=== PATIENT | male | born 1945 | race Caucasian/White ===

== ENCOUNTER 2016-10-31 23:31 | Inpatient (IN) | payer MEDICARE, BC ==
[~2016-10-31] VITALS: Ht 177.8 cm; Wt 81.7 kg
--- NOTE | ~2016-10-31 | HEMODYNAMI ---
PATIENT:SANDIE CHIRINOS MEDICAL RECORD: [id number] : 47 LOCATION:[facility] D.2114 ADMISSION DATE: 11/01/16 Generatedon:11/02/201610:12 Patient name: SANDIE CHIRINOS Patient #: [id number] : 1945 Date of study: 11/02/2016 Page: Of Hemodynamic Procedure Report Patient Data Patient Demographics Procedure consent was obtained First Name: SANDIE Gender: Male Last Name: TARAN : 1945 Patient #: [id number] Age: 71 year(s) Race: SSN: [id number] Additional ID: [id number] Contact details Address: [address] [place] [address] rd State: [place] City: [place] Zip code: [address] Past Medical History Allergies: No known allergies Admission Admission Data Admission Date: 11/01/2016 Admission Time: 1:04 Arrival Date: 11/01/2016 Arrival Time: 1:04 Admit Source: Other Insurance Payor: Medicare Room #: D.2114 Height (in.): 70 BSA: 2 (m2) Height (cm.): 177.8 BMI: 25.94 (kg/m2) Weight (lbs.): 180.78 Weight (kg.): 82 Lab Results Lab Result Date: 11/02/2016 Lab Result Time: 0:00 Biochemistry Name Units Result Min Max BUN mg/dl 22 --(----)-* 7 18 Creatinine mg/dl 1.6 --(----)-* 0.6 1.3 CBC Name Units Result Min Max Hemoglobin g/dl 12.8 -*(----)-- 13.5 17.5 Procedure Procedure Types Cath Procedure PCI Procedure Coronary Stent Initial Coronary Stent Additional Miscellaneous Procedures Moderate Sedation up to 45 minutes Procedure Description Procedure Date Procedure Date: 11/02/2016 Procedure Start Time: 9:36 Procedure End Time: 10:07 Procedure Staff Name Function Solitario Ortez MD Performing Physician Florina Bernal RT Scrub Mindy Avila RN Nurse Tata Tong RT Monitor Indication Angina Procedure Data Cath Procedure Fluoroscopy Diagnostic fluoroscopy Total fluoroscopy Time: time: 16.8 min 16.8 min Diagnostic fluoroscopy Total fluoroscopy dose: dose: 2138 mGy 2138 mGy Contrast Material Contrast Material Type Amount (ml) Isovue 370 151 Entry Location Entry Primary Successful Side Size Upsize Upsize Entry Closure Succes sful Closure Location (Fr) 1 (Fr) 2 (Fr) Remarks Device Remarks Femoral Left 6 Fr Exoseal artery Short Estimated blood loss: 5 ml Procedure Complications No complications Procedure Medications Medication Administration Route Dosage Oxygen NC 2 l/min Lidocaine 2% added to field 20 Heparin Flush Bag added to field 2 bags (1000units/500ml NS) 0.9% NaCl I.V. 100 ml/hr Heparin Bolus I.V. 4000 units Versed I.V. 1 mg Fentanyl I.V. 50 mcg Versed I.V. 0.5 mg Fentanyl I.V. 50 mcg Versed I.V. 0.5 mg Heparin Bolus I.V. 3000 units Hemodynamics Rest BSA: 2 (m2) HGB: 12.8 (g/dl) O2 Consumption: Estimated: 222.9 (ml/min) O2 Consum ption indexed: Estimated:111.45 (ml/min/m) Heart Rate: 59 (bpm) Snapshots Pre Cath Intra NCS Post Cath Vital Signs Time Heart Resp SPO2 NIBP Rhythm Pain Sedation Rate (ipm) (%) (mmHg) Status Level (bpm) 9:16:35 58 17 98 122/72(94) NSR 0 (11) 10(A) , No pain 9:20:45 59 16 100 109/67(81) NSR 0 (11) 10(A) , No pain 9:24:53 61 14 97 103/58(73) NSR 0 (11) 10(A) , No pain 9:28:58 60 15 97 93/56(72) NSR 0 (11) 10(A) , No pain 9:33:02 64 15 95 91/54(68) NSR 0 (11) 10(A) , No pain 9:37:06 57 13 96 102/56(79) NSR 0 (11) 9(A) , No pain 9:41:16 61 15 97 89/49(66) NSR 0 (11) 9(A) , No pain 9:45:19 65 14 96 102/54(73) NSR 0 (11) 9(A) , No pain 9:49:27 59 14 97 100/56(71) NSR 0 (11) 9(A) , No pain 9:53:31 60 13 96 100/61(77) NSR 0 (11) 9(A) , No pain 9:57:33 61 16 96 105/68(86) NSR 0 (11) 9(A) , No pain 10:01:37 62 15 97 107/68(85) NSR 0 (11) 9(A) , No pain 10:05:42 62 14 97 109/64(87) NSR 0 (11) 10(A) , No pain Medications Time Medication Route Dose Verified Delivered Reason Notes Ef fectiveness by by 9:13:15 Oxygen NC 2 Solitario Buffie used for l/min Neelima Avila RN procedure 9:13:24 Lidocaine 2% added 20ml Solitario Solitario for local to vial Neelima Ortez MD anesthetic field 9:13:39 Heparin Flush added 2 Solitario Solitario used for Bag to bags Neelima Ortez MD procedure (1000units/500ml field NS) 9:13:48 0.9% NaCl I.V. 100 Solitario Buffie Per ml/hr Neelima Avila RN physician 9:29:21 Versed I.V. 1 mg Buffie Buffie for Avila RN Avila RN sedation 9:29:29 Fentanyl I.V. 50 Buffie Buffie for mcg Avila RN Avila RN sedation 9:37:02 Heparin Bolus I.V. 4000 Solitario Buffie Per verified units Neelima Avila RN physician with dr ortez 9:44:17 Versed I.V. 0.5 Buffie Buffie for mg Avila RN Avila RN sedation 9:52:14 Fentanyl I.V. 50 Buffie Buffie for mcg Avila RN Avila RN sedation 9:52:22 Versed I.V. 0.5 Buffie Buffie for mg Avila RN Avila RN sedation 10:01:29 Heparin Bolus I.V. 3000 Solitario Buffie Per verified units Neelima Avila RN physician with dr ortez Procedure Log Time Note 8:58:00 Diagnostic Cath Status : Elective 8:58:21 Indication : Angina 8:58:26 Florina Bernal RT(R) sent for patient. Start room use. 8:58:34 Time tracking: Regular hours 8:58:39 Plan of Care:Hemodynamics will remain stable., Cardiac rhythm will remain stable., Comfort level will be maintained., Respiratory function will remain adequate., Patient/ family verbilizes understanding of procedure., Procedure tolerated without complication., Recovers from procedure without complications.. 9:04:05 Informed consent obtained and on chart 9:09:07 Patient received from Med II to CCL 2 Alert and oriented. Tansferred to table in Supine position. 9:09:08 Warm blankets applied, and gabino hugger turned on for patient comfort. 9:09:08 Correct patient and procedure confirmed by team. 9:09:09 ECG and BP/O2 sat monitors applied to patient. 9:13:15 Oxygen 2 l/min NC was administered by Mindy Avila RN; used for procedure; 9:13:24 Lidocaine 2% 20ml vial added to field was administered by Solitario Ortez MD; for local anesthetic; 9:13:39 Heparin Flush Bag (1000units/500ml NS) 2 bags added to field was administered by Solitario Ortez MD; used for procedure; 9:13:48 0.9% NaCl 100 ml/hr I.V. was administered by Mindy Avila RN; Per physician; 9:15:24 Vital chart was started 9:17:30 Baseline sample Acquired. 9:17:34 Rhythm: sinus rhythm 9:17:36 Full Disclosure recording started 9:17:51 H&P Date Dictated: 11/02/2016 Within 30 days and on chart.. 9:17:52 Pre-procedure instructions explained to patient. 9:17:52 Pre-op teaching completed and patient verbalized understanding. 9:17:53 Family in waiting room. 9:17:54 Patient NPO since Midnight. 9:18:00 Is the patient allergic to Iodine/contrast media? No. 9:18:01 Was the patient premedicated? No 9:18:03 Is patient on blood thinner?Yes 9:18:06 ACC The patient was administered the following blood thiners within the last 24 hours: ACCPlavix 9:20:19 Patient diabetic? No. 9:20:22 Previous problem with sedation/anesthesia? No ? 9:20:27 Snore? Yes 9:20:30 Sleep apnea? No 9:20:31 Deviated septum? No 9:20:32 Opens mouth fully? Yes 9:20:32 Sticks out tongue? Yes 9:20:37 Airway obstruction? No ? 9:20:42 Dentures? Yes in tight 9:20:47 Pre procedure: right dorsailis pedis pulse 1+ Palpable, but thready & weak; easily obliterated 9:20:53 IV patent on arrival in left forearm with 0.9% NaCl at [facility]. 9:21:13 Lab Result : BUN 22 mg/dl 9:21:13 Lab Result : Creatinine 1.6 mg/dl 9:21:13 Lab Result : Hemoglobin 12.8 g/dl 9:21:17 Lab results completed and on chart. 9:21:31 Left groin area was prepped with chlora-prep and draped in sterile fashion 9:21:35 Alarms reviewed by R. N. 9:21:35 Sharps counted by scrub and verified by R.N. 9:22:15 Use device set Femoral PCI 9:22:16 Acist Syringe opened to sterile field. 9:22:17 Acist Hand Control opened to sterile field. 9:22:17 Bag Decanter opened to sterile field. 9:22:17 Medline Cath Pack opened to sterile field. 9:22:18 Terumo 6Fr [place] Sheath opened to sterile field. 9:22:18 St Andres 260cm J .035 wire opened to sterile field. 9:22:19 Merit BasixCompak Inflation Kit opened to sterile field. 9:22:19 Acist Manifold opened to sterile field. 9:22:20 Tegaderm 4 x 4 opened to sterile field. 9:27:46 Patient Weight : 82 kg 9:28:15 Patient Height : 177.8 cm 9:28:51 Physician arrived 9:28:51 --------ALL STOP TIME OUT------ 9:28:51 Final Timeout: patient, procedure, and site verified with staff and physician. All members of the team are in agreement. 9:28:53 Left groin site verified by team. 9:28:56 Physical assessment completed. ASA score P 2 - A patient with mild systemic disease as per Solitario Ortez MD. 9:28:59 Sedation plan: IV Moderate Sedation Versed, Fentanyl 9:29:21 Versed 1 mg I.V. was administered by Mindy Avila RN; for sedation; 9:29:29 Fentanyl 50 mcg I.V. was administered by Mindy Avila RN; for sedation; 9:32:56 Zero performed for pressure channel P1 9:35:55 Procedure started. 9:36:03 Local anesthetic to left femerol artery with Lidocaine 2% by Solitario Ortez MD.INITIAL ACCESS ONLY 9:36:11 A 6 Fr Short sheath was inserted into the Left Femoral artery 9:36:24 Cordis 6FR XBLAD 3.5 guide catheter opened to sterile field. 9:36:25 Li Whisper J 300cm 0.014 guide wire opened to sterile field. 9:36:25 Li Whisper J 300cm 0.014 guide wire opened to sterile field. 9:36:33 6 Fr xblad 3.5 guide catheter was inserted over the wire 9:36:38 ist whisper advanced down lad 9:37:02 Heparin Bolus 4000 units I.V. was administered by Mindy Avila RN; Per physician; verified with dr ortez 9:39:13 additional whisper wire advanced down lcx 9:39:45 Inflation number: 1 A Leslie Sci Morrow 2.5 X 15 balloon was prepped and advanced across the 1st Diag, then inflated to 9 DEBBIE for 0:10 (min:sec). 9:40:01 Inflation number: 2 The Leslie Sci Morrow 2.5 X 15 balloon was reinflated across the 1st Diag, to 9 DEBBIE for 0:10 (min:sec). 9:40:41 Inflation number: 3 The Leslie Sci Morrow 2.5 X 15 balloon was reinflated across the 1st Diag, to 9 DEBBIE for 0:10 (min:sec). 9:41:44 Balloon removed over the wire. 9:44:17 Versed 0.5 mg I.V. was administered by Mindy Avila RN; for sedation; 9:45:44 Inflation number: 1 A Euphora 2.5 x 20 Balloon was prepped and advanced across the Prox LAD, then inflated to 13 DEBBIE for 0:10 (min:sec). 9:46:01 Inflation number: 2 The Euphora 2.5 x 20 Balloon was reinflated across the Prox LAD, to 17 DEBBIE for 0:10 (min:sec). 9:46:57 Balloon removed over the wire. 9:49:07 Inflation Number: 3 A Biofreedom 2.5 x 28 stent (No Cost Implant) was prepped and advanced across the Prox LAD. The stent was deployed at 13 DEBBIE for 0:10 (min:sec). 9:50:12 Stent catheter was removed intact over wire. 9:52:14 Fentanyl 50 mcg I.V. was administered by Mindy Avila RN; for sedation; 9:52:17 Inflation number: 4 A Leslie Sci Morrow 3.0 X 15 balloon was prepped and advanced across the Prox LAD, then inflated to 13 DEBBIE for 0:10 (min:sec). 9:52:22 Versed 0.5 mg I.V. was administered by Mindy Avila RN; for sedation; 9:52:46 Balloon removed over the wire. 9:54:28 Inflation Number: 5 A Biofreedom 3.5 x 14 stent (No Cost Implant) was prepped and advanced across the Prox LAD. The stent was deployed at 17 DEBBIE for 0:10 (min:sec). 9:54:53 Stent catheter was removed intact over wire. 9:55:23 Leslie Sci Choice PT Extra Support J 300cm .014 gu opened to sterile field. 9:56:21 choice pt wire advanced down diag 9:58:20 Inflation number: 4 A Euphora 1.5 x 15 Balloon was prepped and advanced across the 1st Diag, then inflated to 21 DEBBIE for 0:10 (min:sec). 10:00:06 Balloon removed over the wire. 10:00:55 Inflation number: 5 The Leslie Sci Morrow 2.5 X 15 balloon was reinflated across the 1st Diag, to 19 DEBBIE for 0:10 (min:sec). 10:01:29 Heparin Bolus 3000 units I.V. was administered by Mindy Avila RN; Per physician; verified with dr ortez 10:01:32 Balloon removed over the wire. 10:03:37 Inflation Number: 6 A Biofreedom 2.5 x 8 stent (No Cost Implant) was prepped and advanced across the 1st Diag. The stent was deployed at 11 DEBBIE for 0:10 (min:sec). 10:04:41 Stent catheter was removed intact over wire. 10:04:41 Wire removed. 10:04:42 Guide catheter removed. 10:04:54 Cordis 6Fr Exoseal opened to sterile field. 10:06:02 Sheath removed intact; hemostasis achieved with Exoseal to the Left Femoral artery. 10:06:04 Procedure ended.(Physican Out) 10:06:19 Fluoroscopy time 16.80 minutes. 10:06:30 Flurop Dose total: 2138 10:06:30 Fluoroscopy dose: 2138 mGy 10:06:35 Contrast amount:Isovue 370 151ml. 10:06:37 Sharps counted by scrub and verified by R.N. 10:06:38 Insertion/operative site no bleeding no hematoma. 10:06:47 Post-op/insertion site Left Femoral artery dressed using a 4 x 4 and Tegaderm. 10:06:52 Post left femerol artery:stable 10:06:54 Post Procedure Pulses reassessed and unchanged 10:06:57 Post procedure rhythm: unchanged. 10:07:02 Estimated blood loss: 5 ml 10:07:05 Post procedure instruction explained to patient.Patient verbalizes understanding. 10:07:06 Patient needs reinforcement of post procedure teaching. 10:07:23 Procedure type changed to Cath procedure, PCI procedure, Coronary Stent Initial, Coronary Stent Additional, Miscellaneous Procedures, Moderate Sedation up to 45 minutes 10:07:24 Procedure and supply charges have been captured, reviewed, submitted and are correct. 10:07:29 Procedure Complication : No complications 10:07:31 Vital chart was stopped 10:07:32 See physician's report for complete and final results. 10:07:[address] [facility]. 10:07:[address] [facility] with Stretcher. 10:07:41 Procedure ended. 10:07:41 Full Disclosure recording stopped 10:07:53 ACC-PCI Only Patient was given prescriptions, or instructed by Solitario Ortez MD to start/continue the following medications upon discharge: Plavix 10:07:55 End room use (Document Last) Intervention Summary Intervention Notes Time ActionType Lesion and Equipment Action# Pressure Duration Attributes Used 9:39:45 Inflate 1st Diag Leslie Sci 1 9 00:10 balloon Morrow 2.5 X 15 balloon 9:40:01 Reinflate 1st Diag Leslie Sci 2 9 00:10 balloon Morrow 2.5 X 15 balloon 9:40:41 Reinflate 1st Diag Leslie Sci 3 9 00:10 balloon Morrow 2.5 X 15 balloon 9:45:44 Inflate Prox LAD Euphora 1 13 00:10 balloon 2.5 x 20 Balloon 9:46:01 Reinflate Prox LAD Euphora 2 17 00:10 balloon 2.5 x 20 Balloon 9:49:07 Place stent Prox LAD Biofreedom 3 13 00:10 2.5 x 28 stent (No Cost Implant) 9:52:17 Inflate Prox LAD Leslie Sci 4 13 00:10 balloon Morrow 3.0 X 15 balloon 9:54:28 [address] stent Prox LAD Biofreedom 5 17 00:10 3.5 x 14 stent (No Cost Implant) 9:58:20 Inflate 1st Diag Euphora 4 21 00:10 balloon 1.5 x 15 Balloon 10:00:55 Reinflate 1st Diag Leslie Sci 5 19 00:10 balloon Morrow 2.5 X 15 balloon 10:03:37 [address] stent 1st Diag Biofreedom 6 11 00:10 2.5 x 8 stent (No Cost Implant) Device Usage Item Name Manufacture Quantity Catalog Number Hospital Part Current Mini mal Lot# / Charge Number Stock Stock Serial# Code Acist Acist 1 49780 329162 180460 251145 20 Syringe Medical Systems Inc Acist Hand Acist 1 07452 245594 758781 600837 5 Carousell Medical [employer] Inc Bag Microtek 1 2002S 250278 30475 792844 5 Qualgenix Inc. Medline Cardinal 1 [id number] 856563 74425 284448 5 Elemental Cyber Security Terumo 6Fr Terumo 1 [id number] 666156 658738 231265 [address] Andres 1 523691 950937 381943 295111 30 260cm J .035 wire Merit Merit 1 [id number] 425497 771949 919152 15 [email or web address] Medical Inflation Kit Acist Acist 1 74315 807309 126543 418122 5 Manifold Medical Systems Inc Tegaderm 4 3M 1 1626W 920489 934861 831568 5 x 4 Cordis 6FR Cardinal 1 [id number] 895664 179239 807463 10 XBLAD 3.5 Health guide catheter Li Li 2 [id number] 270167 172511 359758 5 Whisper J Vascular 300cm 0.014 guide wire Leslie Sci Leslie 1 [id number] 921744 654503 995067 1 [id number] Morrow Scientific 2.5 X 15 balloon Euphora 2.5 Medtronic 1 [id number] 077051 614468 607766 5 [id number] x 20 Balloon Biofreedom Biosensors 1 [facility]2-2528 401832 621655 5 [id number] 2.5 x 28 [place] SA stent (No Cost Implant) Leslie Sci Leslie 1 [id number] 430377 863285 170741 1 [id number] Morrow Scientific 3.0 X 15 balloon Biofreedom Biosensors 1 [facility]2-1774 354273 854681 5 [id number] 3.5 x 14 [place] SA stent (No Cost Implant) Leslie Sci Leslie 1 [id number] 967492 536667 389492 5 Choice PT Scientific Extra Support J 300cm .014 gu Euphora 1.5 Medtronic 1 [id number] 103991 293227 266108 5 [id number] x 15 Balloon Biofreedom Biosensors 1 [facility]2-8379 679791 780888 5 [id number] 2.5 x 8 [place] SA stent (No Cost Implant) Cordis 6Fr Cardinal 1 EX600 512090 523390 614628 10 [facility] Signature Audit Sweet Stage Time Signature Unsigned Intra-Procedure 11/02/2016 Florina Bernal 10:12:11 AM RT(R) Signatures Monitor : Tata Tong Signature : RT Date : Time : [place] [id number] [facility] [place] [address]
--- NOTE | ~2016-10-31 | HEMODYNAMI ---
PATIENT:SANDIE CHIRINOS MEDICAL RECORD: [id number] : 47 LOCATION:[facility] D.2114 ADMISSION DATE: 11/01/16 Generatedon:11/03/201612:33 Patient name: SANDIE CHIRINOS Patient #: [id number] : 1945 Date of study: 11/01/2016 Page: Of Hemodynamic Procedure Report Patient Data Patient Demographics Procedure consent was obtained First Name: SANDIE Gender: Male Last Name: TARAN : 1945 Patient #: [id number] Age: 71 year(s) Race: SSN: [id number] Additional ID: [id number] Contact details Address: [address] [place] [address] rd State: [place] City: [place] Zip code: [address] Past Medical History Allergies: No known allergies Admission Admission Data Admission Date: 11/01/2016 Admission Time: 10:40 Arrival Date: 11/01/2016 Arrival Time: 1:04 Admit Source: Other Insurance Payor: Medicare Room #: D.2114 Height (in.): 70 BSA: 2 (m2) Height (cm.): 177.8 BMI: 25.94 (kg/m2) Weight (lbs.): 180.78 Weight (kg.): 82 Lab Results Lab Result Date: 11/02/2016 Lab Result Time: 0:00 Biochemistry Name Units Result Min Max BUN mg/dl 22 --(----)-* 7 18 Creatinine mg/dl 1.6 --(----)-* 0.6 1.3 CBC Name Units Result Min Max Hemoglobin g/dl 12.8 -*(----)-- 13.5 17.5 Procedure Procedure Types Cath Procedure Diagnostic Procedure [facility] w/Coronaries PCI Procedure Coronary Stent Initial Coronary Stent Additional Miscellaneous Procedures Moderate Sedation up to 45 minutes Procedure Description Procedure Date Procedure Date: 11/01/2016 Procedure Start Time: 10:05 Procedure End Time: 10:37 Procedure Staff Name Function Florina Bernal RT Monitor Mindy Avila RN Nurse Solitario Ortez MD Performing Physician Tata Tong RT Scrub Indication Angina Procedure Data Cath Procedure Fluoroscopy Diagnostic fluoroscopy Total fluoroscopy Time: time: 11.3 min 11.3 min Diagnostic fluoroscopy Total fluoroscopy dose: dose: 1282 mGy 1282 mGy Contrast Material Contrast Material Type Amount (ml) Isovue 370 116 Entry Location Entry Primary Successful Side Size Upsize Upsize Entry Closure Succes sful Closure Location (Fr) 1 (Fr) 2 (Fr) Remarks Device Remarks Femoral Right 6 Fr Exoseal artery Short Estimated blood loss: 5 ml Diagnostic catheters Device Type Used For End Catheter Placement Cordis 5Fr Pigtail LV Angiography Catheter (MP) Cordis 5Fr JL 4.0 Left Coronary Catheter (MP) Angiography Cordis 5Fr 3DRC Catheter Right Coronary (MP) Angiography Procedure Complications No complications Procedure Medications Medication Administration Route Dosage Oxygen NC 2 l/min Lidocaine 2% added to field 20 Heparin Flush Bag added to field 2 bags (1000units/500ml NS) 0.9% NaCl I.V. 100 ml/hr Versed I.V. 1 mg Fentanyl I.V. 50 mcg Versed I.V. 1 mg Fentanyl I.V. 50 mcg Heparin Bolus I.V. 5000 units Integrilin (Bolus I.V. 7.3 ml 2mg/ml) Integrilin (Bolus 7.3 ml 2mg/ml) Nitroglycerin IC/IA I.C. 150 mcg Plavix P.O. 75 mg Hemodynamics Rest BSA: 2 (m2) HGB: 12.8 (g/dl) O2 Consumption: Estimated: 217.26 (ml/min) O2 Consu mption indexed: Estimated:108.63 (ml/min/m) Heart Rate: 51 (bpm) Pressure Samples Time Site Value (mmHg) Purpose Heart Use Rate(bpm) 10:07 LV 53/50,53 Snapshot 41 Snapshots Pre Cath Intra NCS Post Cath Vital Signs Time Heart Resp SPO2 NIBP Rhythm Pain Status Sedation Rate (ipm) (%) (mmHg) Level (bpm) 9:54:47 49 22 97 104/65(79) NSR 4 (11) , 10(A) Distressing 9:58:53 52 18 97 103/63(78) NSR 4 (11) , 10(A) Distressing 10:02:59 57 17 94 101/60(71) NSR 0 (11) , No 10(A) pain 10:07:04 60 16 97 99/57(72) NSR 0 (11) , No 9(A) pain 10:11:08 62 19 98 105/62(76) NSR 0 (11) , No 9(A) pain 10:15:16 55 16 97 100/54(77) NSR 0 (11) , No 9(A) pain 10:19:24 58 16 98 96/54(70) NSR 0 (11) , No 9(A) pain 10:23:34 50 19 96 87/42(61) NSR 0 (11) , No 9(A) pain 10:27:37 48 16 95 96/51(72) NSR 0 (11) , No 9(A) pain 10:31:41 47 17 95 95/58(74) NSR 0 (11) , No 9(A) pain 10:35:45 48 15 97 104/59(80) NSR 0 (11) , No 10(A) pain Medications Time Medication Route Dose Verified Delivered Reason Notes Effectiveness by by 9:59:17 Oxygen NC 2 Solitario Buffie used for l/min Neelima Avila RN procedure 9:59:24 Lidocaine 2% added 20ml Solitario Solitario used for to vial Neelima Ortez MD procedure field 9:59:30 Heparin Flush added 2 Solitario Solitario used for Bag to bags Neelima Ortez MD procedure (1000units/500ml field NS) 9:59:43 0.9% NaCl I.V. 100 Solitario Buffie Per physician ml/hr Neelima Avila RN 10:00:54 Versed I.V. 1 mg Solitario Buffie for sedation Neelima Avila RN 10:01:00 Fentanyl I.V. 50 Solitario Buffie for sedation mcg Neelima Avila RN 10:08:27 Versed I.V. 1 mg Solitario Buffie for sedation Neelima Avila RN 10:08:30 Fentanyl I.V. 50 Solitario Buffie for sedation mcg Neelima Avila RN 10:11:39 Heparin Bolus I.V. 5000 Solitario Buffie for verifi ed units Neelima Avila RN anticoagulation with dr ortez 10:13:11 Integrilin I.V. 7.3 Solitario Guillen for wasted (Bolus 2mg/ml) ml Neelima Avila RN antiplatelet 2.7 ml therapy of vial 10:18:36 Integrilin I.C 7.3 Solitario Guillen for wasted (Bolus 2mg/ml) ml Neelima Avila RN antiplatelet 2.7 ml therapy of vial 10:21:09 Nitroglycerin I.C. 150 Solitario Jerez for on fie ld IC/IA mcg Neelima Ortez MD vasodilation for dr ortez 10:37:45 Plavix P.O. 75 mg Solitariojose r Guillen for Neelima Avila RN antiplatelet therapy Procedure Log Time Note 9:40:36 Florina Marquezen RT(R) sent for patient. Start room use. 9:46:34 Informed consent obtained and on chart 9:47:27 Admit Source: Other 9:47:35 Arrival Date: 11/01/2016 1:04:00 AM 9:47:45 Insurance Payor : Medicare 9:48:09 Lab Result : Hemoglobin 12.8 g/dl 9:48:09 Lab Result : Creatinine 1.6 mg/dl 9:48:09 Lab Result : BUN 22 mg/dl 9:48:15 Diagnostic Cath Status : Elective 9:48:34 Indication : Angina 9:48:43 Time tracking: Regular hours 9:48:48 Plan of Care:Hemodynamics will remain stable., Cardiac rhythm will remain stable., Comfort level will be maintained., Respiratory function will remain adequate., Patient/ family verbilizes understanding of procedure., Procedure tolerated without complication., Recovers from procedure without complications.. 9:48:53 Patient received from Med II to CCL 1 Alert and oriented. Tansferred to table in Supine position. 9:48:54 Correct patient and procedure confirmed by team. 9:48:54 Warm blankets applied, and gabino hugger turned on for patient comfort. 9:48:55 ECG and BP/O2 sat monitors applied to patient. 9:53:43 Vital chart was started 9:53:45 Baseline sample Acquired. 9:53:56 Rhythm: sinus rhythm 9:53:58 Full Disclosure recording started 9:54:14 H&P Date Dictated: 10/31/2016 Within 30 days and on chart.. 9:54:18 Pre-procedure instructions explained to patient. 9:54:19 Pre-procedure instructions explained to patient. 9:54:22 Family in waiting room. 9:54:33 Patient NPO since Midnight. 9:54:44 Patient allergic to No known allergies 9:54:48 Is the patient allergic to Iodine/contrast media? No. 9:54:57 Is patient on blood thinner?Yes 9:55:04 ACC The patient was administered the following blood thiners within the last 24 hours: ACCPlavix 9:55:07 Patient diabetic? No. 9:55:12 Snore? Yes 9:55:14 Sleep apnea? No 9:55:24 Dentures? Yes partials 9:55:40 Patient pain scale 4/10 pressure. 9:56:09 IV patent on arrival in left forearm with 0.9% NaCl at [facility]. 9:56:22 Lab results completed and on chart. 9:56:26 Right groin area was prepped with chlora-prep and draped in sterile fashion 9:56:27 Alarms reviewed by R. N. 9:56:29 Sharps counted by scrub and verified by R.N. 9:56:30 Physician paged 9:56:34 Physician arrived 9:56:44 Use device set Femoral Dx 9:56:46 Bag Decanter opened to sterile field. 9:56:46 Acist Syringe opened to sterile field. 9:56:47 Medline Cath Pack opened to sterile field. 9:56:48 St Andres 260cm J .035 wire opened to sterile field. 9:56:50 Diagnostic Infinity 5Fr Multipack catheter opened to sterile field. 9:56:50 Acist Manifold opened to sterile field. 9:56:50 Acist Hand Control opened to sterile field. 9:56:51 Tegaderm 4 x 4 opened to sterile field. 9:58:30 Terumo 6Fr [place] Sheath opened to sterile field. 9:59:17 Oxygen 2 l/min NC was administered by Mindy Avila RN; used for procedure; 9:59:24 Lidocaine 2% 20ml vial added to field was administered by Solitario Ortez MD; used for procedure; 9:59:30 Heparin Flush Bag (1000units/500ml NS) 2 bags added to field was administered by Solitario Ortez MD; used for procedure; 9:59:43 0.9% NaCl 100 ml/hr I.V. was administered by Mindy Avila RN; Per physician; 10:00:32 --------ALL STOP TIME OUT------ 10:00:33 Final Timeout: patient, procedure, and site verified with staff and physician. All members of the team are in agreement. 10:00:35 Right groin site verified by team. 10:00:38 Physical assessment completed. ASA score P 2 - A patient with mild systemic disease as per Solitario Ortez MD. 10:00:41 Sedation plan: IV Moderate Sedation Versed, Fentanyl 10:00:54 Versed 1 mg I.V. was administered by Mindy Avila RN; for sedation; 10:01:00 Fentanyl 50 mcg I.V. was administered by Mindy Avila RN; for sedation; 10:05:14 Zero performed for pressure channel P1 10:05:18 Zero performed for pressure channel P1 10:05:30 Procedure started. 10:05:35 Local anesthetic to right femoral artery with Lidocaine 2% by Solitario Ortez MD.INITIAL ACCESS ONLY 10:05:45 A 6 Fr Short sheath was inserted into the Right Femoral artery 10:05:59 A Cordis 5Fr Pigtail Catheter (MP) was advanced over the wire and used for LV Angiography. 10:07:30 LV hemodynamics recorded. 10:07:31 LV gram done using ESTEBAN 10:07:37 Injector settings: Ml/sec: 5, Volume: 15, 10:07:42 EF : 40 % 10:07:47 Catheter removed. 10:07:52 A Cordis 5Fr JL 4.0 Catheter (MP) was advanced over the wire and used for Left Coronary Angiography. 10:08:21 LCA angiography performed. 10:08:26 Injector settings: Ml/sec: 3, Volume: 6, 10:08:27 Versed 1 mg I.V. was administered by Mindy Avila RN; for sedation; 10:08:30 Fentanyl 50 mcg I.V. was administered by Mindy Avila RN; for sedation; 10:08:54 Catheter removed. 10:09:02 A Cordis 5Fr 3DRC Catheter (MP) was advanced over the wire and used for Right Coronary Angiography. 10:09:05 RCA angiography performed. 10:09:08 Injector settings: Ml/sec: 3, Volume: 6, 10:09:41 Catheter removed. 10:09:44 Proceeding to intervention. 10:11:39 Heparin Bolus 5000 units I.V. was administered by Mindy Avila RN; for anticoagulation; verified with dr ortez 10:12:01 Merit BasixCompak Inflation Kit opened to sterile field. 10:12:02 Li Whisper J 300cm 0.014 guide wire opened to sterile field. 10:12:03 Li Whisper J 300cm 0.014 guide wire opened to sterile field. 10:12:11 Cordis 6FR XBLAD 3.5 guide catheter opened to sterile field. 10:12:18 Quick Combo opened to sterile field. 10:12:26 Quick combo pads placed on patients chest and back. 10:12:38 6 Fr xblad 3.5 guide catheter was inserted over the wire 10:13:07 whisper wire advanced down LAD 10:13:11 Integrilin (Bolus 2mg/ml) 7.3 ml I.V. was administered by Mindy Avila RN; for antiplatelet therapy; wasted 2.7 ml of vial 10:13:54 additional whisper wire advanced down LCX 10:16:03 Inflation number: 1 A [place] Sci Zapata 2.5 X 20 balloon was prepped and advanced across the Prox CX, then inflated to 13 DEBBIE for 0:10 (min:sec). 10:16:18 Inflation number: 2 The [place] Sci Zapata 2.5 X 20 balloon was reinflated across the Prox CX, to 17 DEBBIE for 0:10 (min:sec). 10:18:35 Balloon removed over the wire. 10:18:36 Integrilin (Bolus 2mg/ml) 7.3 ml I.C was administered by Mindy Avila RN; for antiplatelet therapy; wasted 2.7 ml of vial 10:20:40 Inflation Number: 3 A Biofreedom 3.0 x 28 stent (No Cost Implant) was prepped and advanced across the Prox CX. The stent was deployed at 13 DEBBIE for 0:10 (min:sec). 10:21:09 Nitroglycerin IC/IA 150 mcg I.C. was administered by Solitario Ortez MD; for vasodilation; on field for dr ortez 10:22:11 Inflation number: 4 The stent balloon was then re-inflated across the Prox CX to 13 DEBBIE for 0:10 (min:sec). 10:22:58 LAD wire removed 10:23:10 Stent catheter was removed intact over wire. 10:25:02 Inflation Number: 4 A Biofreedom 2.5 x 18 stent (No Cost Implant) was prepped and advanced across the 1st Ob Tia. The stent was deployed at 11 DEBBIE for 0:10 (min:sec). 10:25:35 Stent catheter was removed intact over wire. 10:27:16 Wire removed. 10:27:21 whisper wire advanced. 10:28:04 Wire redirected to om1. 10:28:40 Inflation number: 1 The [place] Sci Zapata 2.5 X 20 balloon was reinflated across the 1st Ob Tia, to 9 DEBBIE for 0:10 (min:sec). 10:30:21 Inflation number: The [place] Sci Zapata 2.5 X 20 balloon was reinflated across the 1st Ob Tia, to 11 DEBBIE for 0:10 (min:sec). 10:31:44 Balloon removed over the wire. 10:32:36 Inflation Number: 1 A Biofreedom 2.5 x 24 stent (No Cost Implant) was prepped and advanced across the Mid CX1. The stent was deployed at 11 DEBBIE for 0:10 (min:sec). 10:33:02 Stent catheter was removed intact over wire. 10:33:03 Guide catheter removed. 10:33:03 Wire removed. 10:33:47 Cordis 6Fr Exoseal opened to sterile field. 10:34:20 Sheath removed intact; hemostasis achieved with Exoseal to the Right Femoral artery. 10:34:27 Procedure ended.(Physican Out) 10:36:08 Fluoroscopy time 11.30 minutes. 10:36:15 Fluoroscopy dose: 1282 mGy 10:36:15 Flurop Dose total: 1282 10:36:20 Contrast amount:Isovue 370 116ml. 10:36:22 Sharps counted by scrub and verified by R.N. 10:36:24 Insertion/operative site no bleeding no hematoma. 10:36:26 Post-op/insertion site Right Femoral artery dressed using a 4 x 4 and Tegaderm. 10:36:29 Post right femoral artery:stable 10:36:32 Post Procedure Pulses reassessed and unchanged 10:36:38 Post procedure rhythm: unchanged. 10:36:40 Estimated blood loss: 5 ml 10:36:42 Patient needs reinforcement of post procedure teaching. 10:36:42 Post procedure instruction explained to patient.Patient verbalizes understanding. 10:36:43 Procedure and supply charges have been captured, reviewed, submitted and are correct. 10:37:04 Procedure type changed to Cath procedure, Diagnostic procedure, LHC, LHC w/Coronaries, PCI procedure, Coronary Stent Initial, Coronary Stent Additional, Miscellaneous Procedures, Moderate Sedation up to 45 minutes 10:37:10 Procedure Complication : No complications 10:37:12 See physician's report for complete and final results. 10:37:12 Vital chart was stopped 10:37:16 Report given to Med II. 10:37:19 Patient transfered to Med II with Stretcher. 10:37:21 Full Disclosure recording stopped 10:37:21 Procedure ended. 10:37:36 ACC-PCI Only Patient was given prescriptions, or instructed by Solitario Ortez MD to start/continue the following medications upon discharge: Plavix 10:37:37 End room use (Document Last) 10:37:45 Plavix 75 mg P.O. was administered by Mindy Avila RN; for antiplatelet therapy; Intervention Summary Intervention Notes Time ActionType Lesion and Equipment Action# Pressure Duration Attributes Used 10:16:03 Inflate Prox CX [place] Sci 1 13 00:10 balloon Zapata 2.5 X 20 balloon 10:16:18 Reinflate Prox CX [place] Sci 2 17 00:10 balloon Zapata 2.5 X 20 balloon 10:20:40 [address] stent Prox CX Biofreedom 3 13 00:10 3.0 x 28 stent (No Cost Implant) 10:22:11 Reinflate Prox CX Biofreedom 4 13 00:10 stent 3.0 x 28 balloon stent (No Cost Implant) 10:25:02 Place stent 1st Ob Tia Biofreedom 4 11 00:10 2.5 x 18 stent (No Cost Implant) 10:28:40 Reinflate 1st Ob Tia [place] Sci 1 9 00:10 balloon Zapata 2.5 X 20 balloon 10:30:21 Reinflate 1st Ob Tia [place] Sci 11 00:10 balloon Zapata 2.5 X [address] balloon 10:32:36 [address] stent Mid CX1 Biofreedom 1 11 00:10 2.5 x 24 stent (No Cost Implant) Device Usage Item Name Manufacture Quantity Catalog Number Hospital Part Current Mini mal Lot# / Charge Number Stock Stock Serial# Code Acist Acist 1 40471 112778 636437 898955 20 Syringe Medical Systems Inc Bag Microtek 1 2002S 943641 34879 973756 5 DecVitrinepix Inc. Medline Cardinal 1 [id number] 921324 81133 526329 [address] [facility] And[facility] 1 836784 499524 087612 999567 30 260cm J .035 wire Acist Hand Acist 1 57491 652016 981150 844964 5 Control Medical Systems Inc Acist Acist 1 02649 980638 105340 495277 5 Manifold Medical Systems Inc Diagnostic Cardinal 1 [id number] 921765 38051 353108 30 Infinity Health 5Fr Multipack catheter Tegaderm 4 3M 1 1626W 842515 900698 907511 5 x 4 Terumo 6Fr Terumo 1 YWO940 610825 976696 727293 40 [place] Sheath Cordis 5Fr Cardinal 1 305848 5 Pigtail Health Catheter (MP) Cordis 5Fr Cardinal 1 453902 5 JL 4.0 Health Catheter (MP) Cordis 5Fr Cardinal 1 092505 5 3DRC Health Catheter (MP) Merit Merit 1 EO7509 088053 067047 115789 15 BasixCompak Medical Inflation Kit Li Li 2 [id number] 152972 373956 196843 5 Whisper J Vascular 300cm 0.014 guide wire Cordis 6FR Cardinal 1 [id number] 711777 136675 017396 10 XBLAD 3.5 Health guide catheter Quick Combo Edge Systems 1 95576-272331 920955 045902 589665 5 [place] Sci [place] 1 [id number] 010107 765424 105201 1 [id number] [facility] 2.5 X 20 balloon Biofreedom Biosensors 1 RC2-3028 809097 749895 5 [id number] 3.0 x 28 [place] SA stent (No Cost Implant) Biofreedom Biosensors 1 BFRC2-2518 046751 048657 5 [id number] 2.5 x 18 [place] SA stent (No Cost Implant) Biofreedom Biosensors 1 [facility]2-2524 928197 591261 5 [id number] 2.5 x 24 [place] SA stent (No Cost Implant) Cordis 6Fr Cardinal 1 EX600 235355 513927 382534 10 [facility] Signature Audit [place] Stage Time Signature Unsigned Intra-Procedure 11/01/2016 Florina Bernal RT(R) 10:44:59 AM RT(R) 11/03/2016 12:21:56 PM Intra-Procedure 11/03/2016 Florina Bernal RT(R) 12:27:40 PM RT(R) 11/03/2016 12:31:10 PM Intra-Procedure 11/03/2016 Florina Bernal 12:33:16 PM RT(R) Signatures Monitor : Florina Bernal RT Signature : Date : Time : [id number] [place] [address]
--- NOTE | ~2016-10-31 | DS ---
PATIENT:SANDIE OWENS :47 MEDICAL RECORD: [id number] DISCHARGE SUMMARY ADMISSION DATE: 11/01/16 DISCHARGE DATE: 11/03/16 DISCHARGE DIAGNOSES: 1. Myocardial infarction. 2. Coronary artery disease. 3. Percutaneous transluminal coronary angioplasty stent of left anterior descending and left circumflex this admission. 4. Hyperlipidemia. HOSPITAL COURSE: Mr. Owens presents with chest pain, rules in for myocardial infarction, underwent coronary angiogram revealing two-vessel disease, underwent successful PTCA stent of the LAD and circumflex, was discharged home with the addition of aspirin, Plavix and Pravachol to his medical regimen. Follow up with [facility] in 1 month. TRANSINT:[id number] Voice Confirmation ID: [id number] DOCUMENT ID: [id number] DALE ZAMORA MD CC: [id number] DICTATION DATE: 11/03/16 1038 CORRUGATOR: 11/04/16 0254 DIS IN 11/03/16 [facility] [address] [id number]
[2016-11-01 00:10] LABS: BASOPHILS 0.1 % (0-2); EOSINOPHILS 0.4 % (0-7); HEMATOCRIT 40.1 % (42.0-54.0); HEMOGLOBIN 12.8 g/dL (13.5-17.5); IMMATURE GRANULOCYTES 0.1 % (0-5); LYMPHOCYTES 17.4 % (15-50); MCH 30.7 pg (26.0-34.0); MCHC 31.9 g/dL (31.0-37.0); MCV 96.2 fL (80.0-100.0); MEAN PLATELET VOLUME 12.1 fL (7.4-10.4); MONOCYTES 5.6 % (2-11); NEUTROPHILS 76.4 % (40-80); PLATELET COUNT 144 10x3/uL (130-400); RBC 4.17 10x6/uL (4.20-6.10); RDW 13.6 % (11.5-14.5); WBC 9.5 10x3/uL (4.8-10.8)
[2016-11-01 00:43] LABS: ALBUMIN 3.3 g/dL (3.4-5.0); ALKALINE PHOSPHATASE 79 U/L (46-116); ALT (SGPT) 39 U/L (10-68); CALC OSMOLALITY 286 mosm/kg (275-300); CALCIUM 8.6 mg/dL (8.5-10.1); CARBON DIOXIDE 25.1 mmol/L (21.0-32.0); CHLORIDE - SERUM 106 mmol/L (98-107); CREATININE - SERUM 1.6 mg/dL (0.6-1.3); GLUCOSE 189 mg/dL (74-106); POTASSIUM - SERUM 3.8 mmol/L (3.5-5.1); SODIUM 140 mmol/L (136-145); UREA NITROGEN 22 mg/dL (7-18); eGFR NON AFRICAN AMERICAN 46 mL/min (90-120)
[2016-11-01 00:47] LABS: CKMB 293.9 U/L (0.0-3.6)
[2016-11-01 00:48] LABS: CREATINE KINASE 1561 UL (21-232); TROPONIN-I 25.218 ng/mL (0.000-0.060)
--- NOTE | 2016-11-01 02:51 | NUR ---
RECIEVED TO ROOM 2113 FROM ER VIA . A&O, VITALS STABLE. RESPERATIONS EVEN ON RA. PLACED ON TELEMETRY. 44 SINUS TONNY PER MT. IV TO LEFT ARM SL, SITE CLEAN AND DRY. PT DENIES PAIN OR NEEDS, BED LOW, CL IN REACH, AT BED SIDE.
[2016-11-01] MEDS ORDERED: ADVIL200 MG PO (02:53)
[2016-11-01 03:14] VITALS: BP 97/52; BMI 25.9
[2016-11-01 04:15] VITALS: BP 129/84
--- NOTE | 2016-11-01 04:24 | NUR ---
RESPERATIONS EVEN, NO S/S DISTRESS NOTED.
[2016-11-01 07:23] VITALS: BP 99/53
--- NOTE | 2016-11-01 09:45 | NUR ---
PT TO SANDER OPERATOR VIA BED NAD NOTED
--- NOTE | 2016-11-01 11:00 | NUR ---
BACK FROM SHADOWGRAPH SCALE OPERATOR RT MELVA GASCA C/D/I NO SIGNS OF BLEEDING VSS WILL CONTINUE TO MONITOR
[2016-11-01 12:09] VITALS: BP 90/51
[2016-11-01 16:10] VITALS: BP 92/41
[2016-11-01 20:00] VITALS: BP 98/50
[2016-11-02] VITALS: BP 86/48
[2016-11-02 04:00] VITALS: BP 90/53
--- NOTE | 2016-11-02 06:01 | NUR ---
PT SIGNS INFORMED CONSENTS THIS AM FOR CATH.
[2016-11-02 08:29] VITALS: BP 97/56
--- NOTE | 2016-11-02 09:00 | NUR ---
PRE-OPS GIVEN. TO LEAD NET SOFTWARE DEVELOPER BY BED.
--- NOTE | 2016-11-02 10:15 | HP ---
PATIENT: SANDIE CHIRINOS MEDICAL RECORD: [id number] ACCOUNT: [id number] LOCATION:[address] : 47 ADMISSION DATE: 11/01/16 HISTORY AND PHYSICAL EXAMINATION DATE OF SERVICE: 11/01/2016 DIAGNOSES: 1. Myocardial infarction. 2. Coronary artery disease. 3. Chronic NSAID use for low back and knee pain. HISTORY OF PRESENT ILLNESS: This is a 71-year-old gentleman with no previous cardiac history. Only medication he is on is daily Motrin for back and knee pain. He had 2 days of chest discomfort. The chest discomfort woke him at 4:30, Wednesday morning, he waited until late yesterday to present to the Emergency Room. He had a troponin of 25. His EKG is with no acute ST-T abnormalities. He is pain free. PHYSICAL EXAMINATION: GENERAL APPEARANCE: Well-nourished, well-developed, appears stated age. Level of distress, comfortable. PSYCHIATRIC: Mental status, alert, normal affect. Orientation, oriented to time, place and person. EYES: Lids and conjunctiva, noninjected. No discharge, no pallor. ENT: Lips, teeth, gums, normal dentition. Oropharynx, no cyanosis, no pallor. NECK: Carotid arteries, bilateral normal upstroke, no bruits, no thrills. JUGULAR VEINS: No jugular venous pressure or distention. CERVICAL LYMPH NODES: Nontender, nonenlarged. THYROID: Not enlarged. Nontender. No nodules. LUNGS: Respiratory effort, unlabored. CHEST: Normal curvature. No thoracic deformity. No chest wall tenderness. Percussion, resonant. Auscultation, clear. No wheezes, no rales, no rhonchi. CARDIOVASCULAR: Precordial exam, nondisplaced. No heaves or pericardial thrills. Rate and rhythm, regular. Heart sounds, normal S1, normal S2. No S3, no gallop, no rub. Systolic murmur, not heard. Diastolic murmur, not heard. EXTREMITIES: No cyanosis, no edema. Peripheral pulses, full and equal in all extremities, except as noted. No bruits appreciated. ABDOMEN: Soft, nondistended. Normal aorta. No bruit. Nontender. No masses. Liver, nontender, no hepatomegaly. Spleen, nontender, no splenomegaly. MUSCULOSKELETAL: No joint tenderness. No joint swelling. No erythema. NEUROLOGICAL: Normal gait, normal strength, normal tone. SKIN: Warm and dry. REVIEW OF SYSTEMS: The patient reports easy bruising but reports no swollen glands. The patient reports no fever, no night sweats, no significant weight gain, no significant weight loss. No significant exercise tolerance. The patient reports no dry eyes, no irritation, no vision change. Patient reports no difficulty hearing and no ear pain. Patient reports no frequent nose bleeds or nose and sinus problems. Patient reports on arm pain on exertion. No shortness of breath while lying down. No history of heart murmur. Patient reports no cough, no wheezing or coughing up blood. Patient reports no abdominal pain, no vomiting. Normal appetite. No diarrhea and not vomiting blood. No nausea and no constipation. Patient reports no incontinence. No difficulty urinating. No hematuria. No increased frequency. Patient reports HISTORY AND PHYSICAL [id number] SANDIE CHIRINOS no muscle aches. No weakness, no arthralgias, no back pain. No swelling of the extremities. Patient reports no abnormal mole, no jaundice, no rashes. Reports no loss of consciousness. No weakness and no numbness. No seizures, dizziness, or headaches. The patient reports no depression, no sleep disturbance, feeling safe in a relationship and no alcohol abuse. Patient reports on fatigue. Reports no runny nose or sinus pressure. No itching, no hives, and no frequent sneezing. OVERALL IMPRESSION: Myocardial infarction. No doubt he has hemodynamically significant coronary artery disease. We will proceed with coronary angiography. Further care depends upon findings of the angiography. TRANSINT:[id number] Voice Confirmation ID: [id number] DOCUMENT ID: [id number] DALE ZAMORA MD at 1015 CC: [id number] DICTATION DATE: 11/01/16 0801 SEED AND FERTILIZER SPECIALIST: 11/01/16 1052 [address] [place] [address]
--- NOTE | 2016-11-02 10:28 | NUR ---
BACK FROM DIRECTOR OF MOBILE MARKETING. VS WNL. LEFT GROIN STABLE WITHOUT BLEEDING OR HEMATOMA NOTED. WILL MONITOR.
[2016-11-02 11:30] VITALS: Ht 177.8 cm; Wt 81.7 kg
[2016-11-02 12:05] VITALS: BP 100/47
--- NOTE | 2016-11-02 14:30 | NUR ---
BR UP. GROIN STABLE.
[2016-11-02 16:00] VITALS: BP 98/55
[2016-11-02 21:27] VITALS: BP 107/57
[2016-11-03 01:46] VITALS: BP 93/50
[2016-11-03 06:24] VITALS: BP 101/58
[2016-11-03 08:00] VITALS: BP 104/63
[2016-11-03] MEDS ORDERED: PLAVIX75 MG PO (10:51)
[2016-11-03] MEDS ORDERED: ASPIRIN81 MG PO (10:51)
[2016-11-03] MEDS ORDERED: PRAVACHOL20 MG PO (10:52)
[2016-11-03 11:44] VITALS: BP 102/60
--- NOTE | 2016-11-03 11:45 | NUR ---
Patient Name: SANDIE OWENS Admission Status: ER Accout number: [id number] Admission Date: 11-01-2016 : 1945 Admission Diagnosis: Attending: SHAKIR Current LOS: 2 Anticipated DC Date: 11-03-2016 Planned Disposition: Home Primary Insurance: MEDICARE A & B Discharge Planning Comments: CM met with patient & Abby () to assess discharge planning/needs. Patient state discharge plan is to return home. States home environment is safe. States his will drive home. Pt denies any HH or CM needs. PCP: [facility]: [facility] () Tobacco Roller: Mariya Bosch * Is the patient Alert and Oriented? Yes 0 * How many steps to enter\exit or inside your home? 0 0 * PCP [facility] 0 * [facility] 0 * Preadmission Environment Home with Family 0 * ADLs Independent 0 * Equipment None 0 * List name and contact numbers for known caregivers / representatives who currently or will assist patient after discharge: Abby Owens () 0 * Community resources currently utilized None 0 * Additional services required to return to the preadmission environment? No 0 * Can the patient safely return to the preadmission environment? Yes 0 * Has this patient been hospitalized within the prior 30 days at any hospital? No 0 Grand Total: 0
--- NOTE | 2016-11-03 11:45 | NUR ---
IV AND TELEMETRY DCD. DC PLANS GIVEN. UNDERSTANDING VOICED. ESCORTED TO CAR BY W/C.
--- NOTE | 2016-11-03 18:08 | OP ---
PATIENT NAME: SANDIE CHIRINOS MEDICAL RECORD: [id number] :47 LOCATION:D.M2 D.2114 ADMISSION DATE:11/01/16 SURGEON: DALE ZAMORA MD DATE OF OPERATION: 11/01/2016 PROCEDURE: 1. PTCA stent left circumflex. 2. PTCA stent first obtuse marginal. 3. Left heart catheterization. 4. Selective coronary angiography. 5. Left ventriculogram. INDICATION: Non-Q-wave myocardial infarction. DESCRIPTION OF PROCEDURE: After informed consent was obtained and after detailed explanation of risks, benefits as well as alternative therapies, the patient elected to proceed with angiogram and angioplasty. The right femoral area was prepped and draped in normal sterile fashion. The right femoral artery was cannulated via modified Seldinger technique with placement of 6-Latvian sheath. All catheters exchanged through this sheath. FINDINGS: The left ventriculogram was performed in standard 30-degree ESTEBAN view reveals global hypokinesis, ejection fraction in the 40% range. SELECTIVE CORONARY ANGIOGRAPHY: 1. Left main is with no significant angiographic disease. 2. Left anterior descending has a 95% stenosis at the bifurcation of the left anterior descending and left anterior descending diagonal, both were affected by this. 3. Left circumflex has 100% acute occlusion. 4. Right coronary has [id number] irregularities, but no flow-limiting stenosis. PTCA STENT OF THE LEFT CIRCUMFLEX: We were able to traverse a total occlusion, I ballooned this with a 2.5 balloon. There were really 3 lesions. Lesion #1 was proximal circumflex. This was a 25-mm lesion and a 3.0 vessel with NAT 0 flow to begin with 100% occlusion. This was addressed with a 3.0 x 28 mm BioFreedom stent. Lesion #2, first obtuse marginal, this was a total occlusion with NAT 0 flow. This is a 15-mm lesion, this was addressed with a 2.5 x 18 mm BioFreedom stent. Lesion #3, mid circumflex, this was a total occlusion with NAT 0 flow. This is a 20-mm lesion and a 2.5 vessel. This was addressed with a 2.5 x 24 mm BioFreedom stent. Result was 0% residual throughout. No angiographic evidence of dissection or thrombus with muslim of NAT 3 flow throughout. IMPRESSION: Successful percutaneous transluminal coronary angioplasty stent of the left circumflex going from 100% initial stenosis to 0% residual stenosis. TRANSINT:[id number] Voice Confirmation ID: [id number] DOCUMENT ID: [id number] OPERATIVE REPORT [id number] SANDIE CHIRINOS JEFFREY MD at 1808 CC: [id number] DICTATION DATE: 11/01/16 105 SUPERVISOR PRODUCTION: 11/01/161922 DIS IN 11/03/16 [facility] [address] [id number]
--- NOTE | 2016-11-03 18:08 | OP ---
PATIENT NAME: SANDIE CHIRINOS MEDICAL RECORD: [id number] :46 LOCATION:D.M2 D.2114 ADMISSION DATE:11/01/16 SURGEON: DALE ZAMORA MD DATE OF OPERATION: 11/02/2016 PROCEDURES: 1. PTCA stent of the LAD. 2. PTCA stent LAD diagonal. 3. Selective coronary angiography. INDICATION: Myocardial infarction. PROCEDURE: After informed consent was obtained and after detailed explanation of risks, benefits as well as alternative therapies, the patient elected to proceed with angiogram and angioplasty. The left femoral area was prepped and draped in normal sterile fashion. Left femoral artery was cannulated via modified Seldinger technique with placement of 6-Burundian sheath. All catheters exchanged through this sheath. FINDINGS: The LAD had 95% stenosis, diagonal as well had a 95% stenosis. The diagonal lesion was a 6-mm lesion, it was addressed with a 2.5 x 8 mm BioFreedom stent. The LAD lesion was a 25-mm lesion. This was addressed with a 2.5 x 28 and 3.5 x 14 mm BioFreedom stents. Result was 0% residual stenosis. OVERALL IMPRESSION: Successful percutaneous transluminal coronary angioplasty stent of the left anterior descending and left anterior descending diagonal, both going from 95% initial stenosis, NAT 2 flow initially NAT 2 flow at the end. TRANSINT:[id number] Voice Confirmation ID: [id number] DOCUMENT ID: [id number] DALE ZAMORA MD at 1808 CC: [id number] DICTATION DATE: 11/02/16 1013 SHIPPING ROOM SUPERVISOR: 11/02/16 1832 DIS IN 11/03/16 [address] [place] [id number] [place] [id number]
== END 2016-11-03 11:45 | disposition home or self-care (01) | DRG 246 ==
LOC: OBSVTIME → D.ER 23:31 → D.OPS 23:31 → OBSVTIME 11-01 01:04 → D.OPS 11-01 01:04 → D.M2 11-01 01:04 → D.ER 11-01 01:04 → D.M2 11-01 10:40 → EDSTATUS 11-02 09:30 → D.M2 11-03 11:45
PROVIDERS: Emergency Medicine; ADMIT Internal Medicine Interventional Cardiology
PROC: 4A023N7 Measurement of Cardiac Sampling and Pressure, Left Heart, Percutaneous Approach (ICD-10-PCS; 2016-11-01)
PROC: B2111ZZ Fluoroscopy of Multiple Coronary Arteries using Low Osmolar Contrast (ICD-10-PCS; 2016-11-01)
PROC: B2151ZZ Fluoroscopy of Left Heart using Low Osmolar Contrast (ICD-10-PCS; 2016-11-01)
PROC: 027136Z Dilation of Coronary Artery, Two Arteries with Three Drug-eluting Intraluminal Devices, Percutaneous Approach (ICD-10-PCS; principal; 2016-11-01 09:40)
PROC: 027135Z Dilation of Coronary Artery, Two Arteries with Two Drug-eluting Intraluminal Devices, Percutaneous Approach (ICD-10-PCS; 2016-11-02)
DX: I21.4 Non-ST elevation (NSTEMI) myocardial infarction (principal); I25.10 Atherosclerotic heart disease of native coronary artery without angina pectoris; Z00.6 Encounter for examination for normal comparison and control in clinical research program; E78.5 Hyperlipidemia, unspecified

== ENCOUNTER 2016-11-05 08:02 | Inpatient (IN) | payer MEDICARE, BC ==
[2016-11-05] VITALS (11 sets, daily range): BP systolic 109–123; BP diastolic 68–77; BMI 24.8
[~2016-11-05] VITALS: Ht 177.8 cm; Wt 79.1 kg
--- NOTE | ~2016-11-05 | HEMODYNAMI ---
PATIENT:SANDIE CHIRINOS MEDICAL RECORD: [id number] : 47 [id number] ADMISSION DATE: 11/05/16 Generatedon:11/05/20169:55 Patient name: SANDIE CHIRINOS Patient #: [id number] : 1945 Date of study: 11/05/2016 Page: Of Hemodynamic Procedure Report Patient Data Patient Demographics Procedure consent was obtained First Name: SANDIE Gender: Male Last Name: TARAN : 1945 Patient #: [id number] Age: 71 year(s) Race: SSN: [id number] Additional ID: [id number] Contact details [address]: [address] [place] [address] rd State: [place] City: [place] Zip code: [address] Past Medical History Allergies: No known allergies Admission Admission Data Admission Date: 11/05/2016 Admission Time: 8:02 Admit Source: Emergency department Height (in.): 70 BSA: 2 (m2) Height (cm.): 177.8 BMI: 25.83 (kg/m2) Weight (lbs.): 180 Weight (kg.): 81.65 Lab Results Lab Result Date: 11/02/2016 Lab Result Time: 0:00 Biochemistry Name Units Result Min Max BUN mg/dl 22 --(----)-* 7 18 Creatinine mg/dl 1.6 --(----)-* 0.6 1.3 CBC Name Units Result Min Max Hemoglobin g/dl 12.8 -*(----)-- 13.5 17.5 Procedure Procedure Types Cath Procedure Diagnostic Procedure LHC Coronaries only PCI Procedure Coronary Stent Initial Miscellaneous Procedures Moderate Sedation up to 15 minutes Procedure Description Procedure Date Procedure Date: 11/05/2016 Procedure Start Time: 8:59 Procedure End Time: 9:49 Procedure Staff Name Function Billy Layne MD Performing Physician Isaiah Cristobal RT Scrub Mindy Avila RN Nurse Tata Ran RT Monitor Procedure Data Cath Procedure Fluoroscopy Diagnostic fluoroscopy Total fluoroscopy Time: time: 15.5 min 15.5 min Diagnostic fluoroscopy Total fluoroscopy dose: dose: 2221 mGy 2221 mGy Contrast Material Contrast Material Type Amount (ml) Isovue 300 115 Entry Location Entry Primary Successful Side Size Upsize Upsize Entry Closure Succes sful Closure Location (Fr) 1 (Fr) 2 (Fr) Remarks Device Remarks Femoral Right 6 Fr Exoseal artery Short Estimated blood loss: 10 ml Diagnostic catheters Device Type Used For End Catheter Placement Cordis 5Fr JL 4.0 Procedure Catheter (MP) Cordis 5Fr 3DRC Catheter Procedure (MP) Procedure Complications No complications Procedure Medications Medication Administration Route Dosage Oxygen NC 2 l/min Lidocaine 2% added to field 20 Heparin Flush Bag added to field 2 bags (1000units/500ml NS) 0.9% NaCl 100 ml/hr Versed I.V. 1 mg Fentanyl I.V. 50 mcg Heparin Bolus I.V. 8000 units Integrilin (Bolus I.V. 7.3 ml 2mg/ml) Versed I.V. 1 mg Fentanyl I.V. 50 mcg Nitroglycerin IC/IA I.C. 50 mcg Heparin Flush Bag added to field 1 bags (1000units/500ml NS) Integrilin Drip I.V. drip 13.1 ml/hr (75mg/100ml) Brilinta P.O. 180 mg Hemodynamics Rest BSA: 2 (m2) HGB: 12.8 (g/dl) O2 Consumption: Estimated: 230.22 (ml/min) O2 Consu mption indexed: Estimated:115.11 (ml/min/m) Heart Rate: 68 (bpm) Snapshots Pre Cath Intra NCS Post Cath Vital Signs Time Heart Resp SPO2 NIBP (mmHg) Rhythm Pain Sedation Rate (ipm) (%) Status Level (bpm) 8:49:54 68 20 97 122/73(103) NSR w/ ST 0 (11) 10(A) Elevation , No pain 8:54:04 67 17 98 124/68(97) NSR w/ ST 0 (11) 10(A) Elevation , No pain 8:58:12 71 19 97 119/76(103) NSR w/ ST 0 (11) 10(A) Elevation , No pain 9:02:20 74 20 94 116/65(100) NSR w/ ST 0 (11) 9(A) Elevation , No pain 9:06:24 70 21 94 117/75(95) NSR w/ ST 0 (11) 9(A) Elevation , No pain 9:10:28 79 21 95 121/79(93) NSR w/ ST 0 (11) 9(A) Elevation , No pain 9:14:33 75 22 95 123/76(98) NSR w/ ST 0 (11) 9(A) Elevation , No pain 9:18:41 73 22 96 117/74(91) NSR w/ ST 0 (11) 9(A) Elevation , No pain 9:22:45 77 26 94 123/74(100) NSR w/ ST 0 (11) 9(A) Elevation , No pain 9:26:53 77 20 93 116/72(94) NSR w/ ST 0 (11) 9(A) Elevation , No pain 9:31:01 78 17 95 105/64(84) NSR w/ ST 0 (11) 9(A) Elevation , No pain 9:35:02 82 19 94 103/66(83) NSR 0 (11) 9(A) , No pain 9:39:04 72 18 95 108/65(84) NSR 0 (11) 9(A) , No pain 9:43:08 75 18 96 97/68(79) NSR 0 (11) 9(A) , No pain 9:47:08 79 19 96 108/67(85) NSR 0 (11) 10(A) , No pain Medications Time Medication Route Dose Verified Delivered Reason Notes Effectiveness by by 8:45:45 Oxygen NC 2 Billy Billy used for l/min Kendall Layne MD procedure 8:45:54 Lidocaine 2% added 20ml Billy Billy for local to vial Kendall Layne MD anesthetic field 8:46:00 Heparin Flush added 2 Billy Billy used for Bag to bags Kendall Layne MD procedure (1000units/500ml field NS) 8:46:10 0.9% NaCl 100 Billy Billy Per physician ml/hr Kendall Layne MD 8:59:38 Versed I.V. 1 mg Billy Buffie for sedation Kendall Avila RN 8:59:43 Fentanyl I.V. 50 Billy Buffie for sedation mcg Kendall Avila RN 9:04:21 Heparin Bolus I.V. 8000 Billy Buffie for verifie d units Kendall Avila RN anticoagulation with dr layne. 9:18:09 Integrilin I.V. 7.3 Billy Buffie for Wasted (Bolus 2mg/ml) ml Kendall Avila RN antiplatelet 2.7 ml therapy of vial. 9:24:29 Versed I.V. 1 mg Billy Buffie for sedation Kendall Avila RN 9:24:33 Fentanyl I.V. 50 Billy Buffie for sedation mcg Kendall Avila RN 9:27:45 Nitroglycerin I.C. 50 Iblly Billy for IC/IA mcg Kendall Layne MD vasodilation 9:35:13 Heparin Flush added 1 Billy Billy used for Bag to bags Kendall Layne MD procedure (1000units/500ml field NS) 9:46:52 Integrilin Drip I.V. 13.1 Billy Buffie for (75mg/100ml) drip ml/hr Kendall Avila RN antiplatelet therapy 9:53:06 Brilinta P.O. 180 Billy Buffie for mg Kendall Avila RN antiplatelet therapy Procedure Log Time Note 8:38:10 Mindy Avila RN sent for patient. Start room use. 8:45:45 Oxygen 2 l/min NC was administered by Billy Layne MD; used for procedure; 8:45:54 Lidocaine 2% 20ml vial added to field was administered by Billy Layne MD; for local anesthetic; 8:46:00 Heparin Flush Bag (1000units/500ml NS) 2 bags added to field was administered by Billy Layne MD; used for procedure; 8:46:10 0.9% NaCl 100 ml/hr was administered by Billy Layne MD; Per physician; 8:46:56 Diagnostic Cath Status : Emergency 8:47:12 Procedure type changed to Cath procedure, Diagnostic procedure, LHC, Coronaries only, PCI procedure, Coronary Stent Initial, Miscellaneous Procedures, Moderate Sedation up to 15 minutes 8:47:32 Patient Weight : 81.65 kg 8:47:38 Patient Height : 177.8 cm 8:48:08 Admit Source: Emergency department 8:48:12 Time tracking: Regular hours 8:48:16 Plan of Care:Hemodynamics will remain stable., Cardiac rhythm will remain stable., Comfort level will be maintained., Respiratory function will remain adequate., Patient/ family verbilizes understanding of procedure., Procedure tolerated without complication., Recovers from procedure without complications.. 8:48:31 Patient arrives emergently. 8:48:41 Patient received from ED to CCL 2 Alert and oriented. Tansferred to table in Supine position. 8:48:42 Warm blankets applied, and gabino hugger turned on for patient comfort. 8:48:43 Correct patient and procedure confirmed by team. 8:48:45 Signed procedure consent form obtained from patient. 8:48:46 ECG and BP/O2 sat monitors applied to patient. 8:48:46 Vital chart was started 8:48:47 Baseline sample Acquired. 8:49:00 Rhythm: w/ ST elevation 8:49:03 Full Disclosure recording started 8:49:09 H&P Date Dictated: 11/05/2016 Emergent; H&P N/A. 8:49:11 Pre-procedure instructions explained to patient. 8:49:12 Family in waiting room. 8:49:14 Patient NPO since Midnight. 8:49:21 Patient allergic to No known allergies 8:49:25 Is the patient allergic to Iodine/contrast media? No. 8:49:28 Is patient on blood thinner?Yes 8:49:30 ACC The patient was administered the following blood thiners within the last 24 hours: ACCPlavix 8:49:32 Patient diabetic? No. 8:49:36 Snore? Yes 8:49:38 Sleep apnea? No 8:50:03 Patient pain scale 5/10 ?. 8:50:10 IV patent on arrival in left forearm with 0.9% NaCl at KVO. 8:50:17 Lab results completed and on chart. 8:50:21 Right groin area was prepped with chlora-prep and draped in sterile fashion 8:50:23 Alarms reviewed by R. N. 8:50:24 Sharps counted by scrub and verified by R.N. 8:50:25 Physician paged 8:52:04 Use device set Femoral PCI 8:52:12 Acist Syringe opened to sterile field. 8:52:13 Acist Hand Control opened to sterile field. 8:52:13 Bag Decanter opened to sterile field. 8:52:14 Medline Cath Pack opened to sterile field. 8:52:15 Terumo 6Fr Craig Sheath opened to sterile field. 8:52:17 St Andres 260cm J .035 wire opened to sterile field. 8:52:20 Merit BasixCompak Inflation Kit opened to sterile field. 8:52:21 Acist Manifold opened to sterile field. 8:52:22 Tegaderm 4 x 4 opened to sterile field. 8:53:45 Physician arrived 8:55:08 Zero performed for pressure channel P1 8:55:21 Zero performed for pressure channel P1 8:56:23 Use device set Multipack Set 8:56:28 Diagnostic Infinity 5Fr Multipack catheter opened to sterile field. 8:58:22 --------ALL STOP TIME OUT------ 8:58:23 Final Timeout: patient, procedure, and site verified with staff and physician. All members of the team are in agreement. 8:58:26 Right groin site verified by team. 8:58:31 Physical assessment completed. ASA score P 3 - A patient with severe systemic disease as per Billy Layne MD. 8:58:34 Sedation plan: IV Moderate Sedation Versed, Fentanyl 8:58:57 Procedure started. 8:59:15 Local anesthetic to right femoral artery with Lidocaine 2% by Billy Layne MD.INITIAL ACCESS ONLY 8:59:38 Versed 1 mg I.V. was administered by Mindy Avila RN; for sedation; 8:59:43 Fentanyl 50 mcg I.V. was administered by Mindy Avila RN; for sedation; 9:00:42 A 6 Fr Short sheath was inserted into the Right Femoral artery 9:01:01 j wire advanced. 9:01:39 A Cordis 5Fr JL 4.0 Catheter (MP) was advanced over the wire and used for Procedure. 9:02:34 Catheter removed. 9:03:38 A Cordis 5Fr 3DRC Catheter (MP) was advanced over the wire and used for Procedure. 9:03:41 RCA angiography performed. 9:03:49 Catheter removed. 9:04:21 Heparin Bolus 8000 units I.V. was administered by Mindy Avila RN; for anticoagulation; verified with dr layne. 9:04:32 Li BMW [place] 2 J-tip 300cm 0.014 guide wir opened to sterile field. 9:04:34 Cordis 6FR XBLAD 3.5 guide catheter opened to sterile field. 9:04:38 IV Extension Set opened to sterile field. 9:04:42 Proceeding to intervention. 9:05:15 6 Fr xblad 3.5 guide catheter was inserted over the wire 9:05:26 bmw wire advanced. 9:08:19 Li Whisper J 300cm 0.014 guide wire opened to sterile field. 9:08:27 Wire removed. 9:08:36 WHISPER wire advanced. 9:10:29 Wire advanced across lesion. Diag 9:10:54 Li Whisper J 300cm 0.014 guide wire opened to sterile field. 9:11:41 2nd Whisper to LAD wire advanced. 9:13:18 Wire advanced across lesion. LAD 9:15:42 Inflation number: 1 A [place] Sci Ada 2.5 X 20 balloon was prepped and advanced across the Mid LAD, then inflated to 10 DEBBIE for 0:19 (min:sec). 9:16:15 Inflation number: 2 The [place] Sci Ada 2.5 X 20 balloon was reinflated across the Mid LAD, to 13 DEBBIE for 0:19 (min:sec). 9:17:58 Inflation number: 3 The [place] Sci Ada 2.5 X 20 balloon was reinflated across the Mid LAD, to 14 DEBBIE for 0:31 (min:sec). 9:18:09 Integrilin (Bolus 2mg/ml) 7.3 ml I.V. was administered by Mindy Avila RN; for antiplatelet therapy; Wasted 2.7 ml of vial. 9:18:48 Balloon removed over the wire. 9:22:42 Inflation number: 1 A [place] Sci Ada 2.0 X 12 balloon was prepped and advanced across the 1st Diag, then inflated to 12 DEBBIE for 0:29 (min:sec). 9:24:07 Inflation number: 2 The [place] Sci Ada 2.0 X 12 balloon was reinflated across the 1st Diag, to 13 DEBBIE for 0:00 (min:sec). 9:24:29 Versed 1 mg I.V. was administered by Mindy Avila RN; for sedation; 9:24:33 Fentanyl 50 mcg I.V. was administered by Mindy Avila RN; for sedation; 9:26:12 Inflation number: 3 The [place] Sci Ada 2.0 X 12 balloon was reinflated across the 1st Diag, to 13 DEBBIE for 0:44 (min:sec). 9:26:57 Inflation number: 4 The [place] Sci Ada 2.0 X 12 balloon was reinflated across the 1st Diag, to 5 DEBBIE for 0:31 (min:sec). 9:27:45 Nitroglycerin IC/IA 50 mcg I.C. was administered by Billy Layne MD; for vasodilation; 9:28:11 Balloon removed over the wire. 9:35:13 Heparin Flush Bag (1000units/500ml NS) 1 bags added to field was administered by Billy Layne MD; used for procedure; 9:36:14 Inflation number: 4 A [place] Sci Ada 3.0 X 12 balloon was prepped and advanced across the Mid LAD, then inflated to 13 DEBBIE for 0:44 (min:sec). 9:37:25 Balloon removed over the wire. 9:42:02 Inflation Number: 5 A CIQUALtronic Integrity 2.5 X 12 stent was prepped and advanced across the Mid LAD. The stent was deployed at 12 DEBBIE for 0:11 (min:sec). 9:44:35 Wire removed. 9:44:35 Guide catheter removed. 9:45:08 Cordis 6Fr Exoseal opened to sterile field. 9:45:58 Sheath removed intact; hemostasis achieved with Exoseal to the Right Femoral artery. 9:46:02 Procedure ended.(Physican Out) 9:46:21 Fluoroscopy time 15.50 minutes. 9:46:27 Flurop Dose total: 2221 9:46:27 Fluoroscopy dose: 2221 mGy 9:46:31 Contrast amount:Isovue 300 115ml. 9:46:43 Sharps counted by scrub and verified by R.N. 9:46:52 Integrilin Drip (75mg/100ml) 13.1 ml/hr I.V. drip was administered by Mindy Avila RN; for antiplatelet therapy; 9:46:52 Insertion/operative site no bleeding no hematoma. 9:47:51 Post-op/insertion site Right Femoral artery dressed using a 4 x 4 and Tegaderm. 9:47:55 Post right femoral artery:stable 9:48:00 Post Procedure Pulses reassessed and unchanged 9:48:06 Post-procedure physical assessment completed. ASA score P 3 - A patient with severe systemic disease as per Billy Layne MD. 9:48:26 Estimated blood loss: 10 ml 9:48:28 Post procedure instruction explained to patient.Patient verbalizes understanding. 9:48:49 Procedure and supply charges have been captured, reviewed, submitted and are correct. 9:49:14 Procedure Complication : No complications 9:49:16 Vital chart was stopped 9:49:17 See physician's report for complete and final results. 9:49:19 Report given to Pre/Post Procedure Room. 9:49:28 Patient transfered to CVICU with Bed. 9:49:31 Procedure ended. 9:49:31 Full Disclosure recording stopped 9:49:36 End room use (Document Last) 9:53:06 Brilinta 180 mg P.O. was administered by Mindy Avila RN; for antiplatelet therapy; 9:54:40 ACC-PCI Only Patient was given prescriptions, or instructed by Billy Layne MD to start/continue the following medications upon discharge: Brilinta Intervention Summary Intervention Notes Time ActionType Lesion and Equipment Action# Pressure Duration Attributes Used 9:15:42 Inflate Mid LAD [place] 1 10 00:19 balloon Sci Ada 2.5 X 20 balloon 9:16:15 Reinflate Mid LAD [place] 2 13 00:19 balloon Sci Ada 2.5 X 20 balloon 9:17:58 Reinflate Mid LAD [place] 3 14 00:31 balloon Sci Ada 2.5 X 20 balloon 9:22:42 Inflate 1st Diag [place] 1 12 00:29 balloon Sci Ada 2.0 X 12 balloon 9:24:07 Reinflate 1st Diag [place] 2 13 00:00 balloon Sci Ada 2.0 X 12 balloon 9:26:12 Reinflate 1st Diag [place] 3 13 00:44 balloon Sci Ada 2.0 X 12 balloon 9:26:57 Reinflate 1st Diag [place] 4 5 00:31 balloon Sci Ada 2.0 X 12 balloon 9:36:14 Inflate Mid LAD [place] 4 13 00:44 balloon Sci Ada 3.0 X 12 balloon 9:42:02 Place stent Mid LAD Medtronic 5 12 00:11 Integrity 2.5 X 12 stent Device Usage Item Name Manufacture Quantity Catalog Number Hospital Part Current Mini mal Lot# / Charge Number Stock Stock Serial# Code Acist Acist 1 10867 878485 857269 488395 20 Syringe Medical Systems Inc Acist Hand Acist 1 29488 636802 618615 480543 5 Control Medical Systems Inc Bag Microtek 1 2002S 011073 84357 497100 5 Decanter Medical Inc. Medline Cardinal 1 [id number] 670405 08244 324142 5 Cath Pack Health Terumo 6Fr Terumo 1 [id number] 889901 162221 101641 [address] [facility] St Andres 1 425620 738576 921554 848940 30 260cm J .035 wire Merit Merit 1 IJ4329 617030 839596 482157 15 Olapic Medical Inflation Kit Acist Acist 1 50823 438408 326599 656793 5 Manifold Medical Systems Inc Tegaderm 4 3M 1 1626W 865013 071895 501577 5 x 4 Diagnostic Cardinal 1 [id number] 892254 06429 485359 30 Infinity Health 5Fr Multipack catheter Cordis 5Fr Cardinal 1 393474 5 JL 4.0 Health Catheter (MP) Cordis 5Fr Cardinal 1 049559 5 3DRC Health Catheter (MP) Li BMW Li 1 [id number] 860456 627444 922655 5 [place] 2 Vascular J-tip 300cm 0.014 guide wir Cordis 6FR Cardinal 1 [id number] 418639 119670 466852 10 XBLAD 3.5 Health guide catheter IV Hospira 1 64526-75 157752 82151 715458 5 Extension Set Li Li 2 [id number] 076754 131943 100915 5 Whisper J Vascular 300cm 0.014 guide wire [place] Sci [place] 1 [id number] 559323 472472 078956 1 [id number] Ada Scientific 2.5 X 20 balloon [place] Sci [place] 1 [id number] 819473 914573 054716 1 [id number] Ada Scientific 2.0 X 12 balloon [place] Sci [place] 1 [id number] 296756 827298 710167 1 [id number] Ada Scientific 3.0 X 12 balloon Medtronic Medtronic 1 [id number] 655007 029942 3 [id number] Integrity 2.5 X 12 stent Cordis 6Fr Cardinal 1 EX600 739228 918223 577655 10 [facility] Shopintoit Signature Audit [place] Stage Time Signature Unsigned Intra-Procedure 11/05/2016 Tata Tong 9:55:23 AM RT(R) Signatures Monitor : Tata Tong Signature : RT Date : Time : [place] [id number] [place] [address]
[~2016-11-05 08:02] MED LIST: ADVIL200 MG PO; ASPIRIN81 MG PO; PLAVIX75 MG PO; PRAVACHOL20 MG PO
[2016-11-05 08:44] LABS: BASOPHILS 0.2 % (0-2); EOSINOPHILS 2.6 % (0-7); HEMATOCRIT 38.2 % (42.0-54.0); HEMOGLOBIN 12.3 g/dL (13.5-17.5); IMMATURE GRANULOCYTES 0.3 % (0-5); LYMPHOCYTES 16.7 % (15-50); MCH 31.1 pg (26.0-34.0); MCHC 32.2 g/dL (31.0-37.0); MCV 96.7 fL (80.0-100.0); MEAN PLATELET VOLUME 12.8 fL (7.4-10.4); MONOCYTES 6.7 % (2-11); NEUTROPHILS 73.5 % (40-80); PLATELET COUNT 152 10x3/uL (130-400); RBC 3.95 10x6/uL (4.20-6.10); RDW 13.3 % (11.5-14.5); WBC 8.8 10x3/uL (4.8-10.8)
[2016-11-05 09:03] LABS: ALBUMIN 3.1 g/dL (3.4-5.0); ALKALINE PHOSPHATASE 135 U/L (46-116); ALT (SGPT) 38 U/L (10-68); BILIRUBIN - TOTAL 0.43 mg/dL (0.2-1.3); CALC OSMOLALITY 283 mosm/kg (275-300); CALCIUM 8.4 mg/dL (8.5-10.1); CARBON DIOXIDE 25.8 mmol/L (21.0-32.0); CHLORIDE - SERUM 103 mmol/L (98-107); CREATININE - SERUM 1.5 mg/dL (0.6-1.3); GLUCOSE 179 mg/dL (74-106); POTASSIUM - SERUM 3.7 mmol/L (3.5-5.1); PROTEIN - SERUM 7.5 g/dL (6.4-8.2); SODIUM 138 mmol/L (136-145); UREA NITROGEN 23 mg/dL (7-18); eGFR NON AFRICAN AMERICAN 49 mL/min (90-120)
[2016-11-05 09:18] LABS: CHOL - HDL RATIO 3.8 ratio (2.3-4.9); CHOLESTEROL, TOTAL 129 mg/dL (0-200); CKMB 2.2 U/L (0.0-3.6); CREATINE KINASE 165 UL (21-232); HDL CHOLESTEROL 34 mg/dL (32-96); LDL CHOLESTEROL 65 mg/dL (0-100); LDL-HDL RATIO 1.9 ratio (1.5-3.5); TRIGLYCERIDE 152 mg/dL (30-200)
[2016-11-05 09:20] LABS: TROPONIN-I 5.153 ng/mL (0.000-0.060)
--- NOTE | 2016-11-05 10:10 | NUR ---
1015 RECIEVED TO ROOM VIA STRETCHER FROM MANUFACTURING LEADER WITH REPORTS OF ACUTE NE. REPROFUSION RYTH AT 84 WIDE QRS. INTEGRILIN GTT AT 13.1 CC/HR. BP 93/61. 6 FR EXOSEAL R/GROIN CDI NO BLEEDING NO HEMATOMA NOTED. FAMILY AT SIDE
--- NOTE | 2016-11-05 10:32 | NUR ---
PATIENT REMAINS IN REPROFUSION AT 80 WITH WIDE QRS PVC'S NOTED. BP 94/63. INTEGRILIN GTT AT 13.1 CC/HR. 6 FR EXOSEAL R/GROIN CDI NO BLEEDING NO HEMATOMA NOTED. INSTRUCTED PATIENT TO KEEP HEAD FLAT ON PILLOW WITH RLE STRAIGHT
--- NOTE | 2016-11-05 10:58 | NUR ---
NAT AT [address] HOPPER AT BEDSIDE BP 89/62 CHEST PAIN DENIED INTEGRILIN GTT AT 13.1 CC/HR. 6 FR EXOSEAL R/GROIN CDI NO BLEEDING NO HEMATOMA NOTED
--- NOTE | 2016-11-05 11:30 | NUR ---
6 FR EXOSEAL R/GROIN CDI NO BLEEDING NO HEMATOMA NOTED. INTEGRILIN CONTINUES TO INFUSE AT 13.1 PVC'S AT 41 WITH BIGMINEY NOTED CHEST PAIN IS DENIED
--- NOTE | 2016-11-05 12:03 | NUR ---
VSS WITH CHEST PAIN DENIED INTEGRILIN CONTINUES TO INFUSE. 6 FR EXOSEAL R/GROIN CDI NO BLEEDING NO HEMATOMA NOTED
--- NOTE | 2016-11-05 12:26 | NUR ---
RESTING QUIETLY WITH VSS NO CHANGE IN R OR R INTEGRILIN CONTINUES TO INFUSE. R/GROIN CDI
--- NOTE | 2016-11-05 12:39 | NUR ---
TELEMETRY CHANGES NOTED PATIENT CONVERTED TO SINUS WITH FIRST DEGREE BLOCK AT 66
--- NOTE | 2016-11-05 13:30 | NUR ---
1330 R/GROIN CDI NO BLEEDING NO HEMATOMA NOTED. CHEST PAIN IS DENIED PATIENT TOLERATING PO FLUIDS AND SANDWICH NAUSEA DENIED
--- NOTE | 2016-11-05 14:23 | NUR ---
VSS WITH CHEST PAIN DENIED. 6 FR EXOSEAL R/GROIN CDI NO BLEEDING NO HEMATOMA NOTED. REPOSITIONED TO SITTING WITH HOB UP 30 DEGREES FOR COMFORT. INTEGRILIN GTT AT 13.1 CC/HR
--- NOTE | 2016-11-05 15:29 | NUR ---
REPORT GIVEN TO [facility] FOR TRANSFER. PATIENT DENIED CHEST PAIN AT THIS TIME. UP TO BEDSIDE COMMODE WITHOUT C/O VSS WITH 6 FR EXOSEAL R/GROIN CDI
--- NOTE | 2016-11-05 15:43 | NUR ---
PT RECEIVED TO ROOM VIA WHEELCHAIR FROM SECURITY NURSE HOLDING. PT IS AWAKE, ALERT AND CONVERSANT. ON INTEGRALIN DRIP. PIV TO LEFT HAND. DRESSING TO RIGHT GROIN INTACT, NO HEMATOMA NOTED. SITE IS SOFT. PEDAL PULSES VERIFIED VIA DOPPLER. PT IS ON ROOM AIR.
--- NOTE | 2016-11-05 16:52 | NUR ---
AT BEDSIDE AT THIS TIME. PT AWAKE AND CONVERSANT. DENIES PAIN OR NEEDS. DRESSING TO RIGHT GROIN IS CLEAN AND DRY. NO HEMATOMA NOTED.
--- NOTE | 2016-11-05 19:30 | NUR ---
REPORT REC'D AND CARE ASSUMED, REC'D PT AWAKE, ALERT, ORIENTED X 3, ON ROOM AIR, LEFT HAND PIV WITH INTEGRILIN INFUSING @ 13.1CC/HR, PT DENIES PAIN, RIGHT GROIN EXOSEAL CDI, NO BLEEDING OR HEMATOMA NOTED, PT MAEE, BILAT FEET COOL TO TOUCH, PP BY DOPPLER, PT WANTING TO GET UP OOB TO BATHROOM, ASSISTED UP TO BATHROOM TOLERATED WELL, INSTRUCTED TO CALL WHEN FINISHED.
--- NOTE | 2016-11-05 19:45 | NUR ---
PT ASSISTED BACK TO BED, PT HAD BROWN FORMED BM, ASSISTED BACK TO BED AND LEMON HOPI YU PROVIDED, DENIES FURTHER NEEDS.
--- NOTE | 2016-11-05 21:00 | NUR ---
AT BS, UPDATE GIVEN AND QUESTIONS ANSWERED, PT COMPLAINS OF HEADACHE.
--- NOTE | 2016-11-05 22:00 | NUR ---
INTEGRILIN TAKEN DOWN AND RIGHT HAND PIV SALINE LOCKED.
--- NOTE | 2016-11-05 22:15 | NUR ---
TYLENOL GIVEN PO FOR HEADACHE, PT DENIES FURTHER NEEDS, VSS, WILL CONT TO MONITOR FOR CHANGES.
--- NOTE | 2016-11-05 23:00 | NUR ---
REASSESSMENT COMPLETED, NO CHANGES FROM PREVIOUS ASSESSMENT, RIGHT GROIN REMAINS CDI, NO BLEEDING OR HEMATOMA, VSS.
[2016-11-06] VITALS (21 sets, daily range): BP systolic 91–121; BP diastolic 52–78; Ht 177.8 cm; Wt 79.1 kg
--- NOTE | 2016-11-06 01:00 | NUR ---
PT RESTING EYES CLOSED, RESP EVEN AND UNLABORED, VSS.
--- NOTE | 2016-11-06 03:00 | NUR ---
REASSESSMENT COMPLETED, NO CHANGES IN STATUS, PT DENIES PAIN OR NEEDS.
--- NOTE | 2016-11-06 05:45 | NUR ---
PT ASSISTED UP TO THE BATHROOM, VOIDED APPROX 300CC YELLOW URINE, BACK TO BED WITHOUT DIFFICULTY, GAIT STEADY, PT DENIES PAIN OR NEEDS.
--- NOTE | 2016-11-06 06:15 | NUR ---
AT BS , UPDATE PROVIDED, JUICE AND WATER PROVIDED FOR PT, PT DENIES FURTHER NEEDS, CALL LIGHT IN REACH, BED IN LOW POSITION.
--- NOTE | 2016-11-06 13:26 | OP ---
PATIENT NAME: SANDIE CHIRINOS MEDICAL RECORD: [id number] :47 [facility]ATION[facility] ADMISSION DATE:11/05/16 SURGEON: ALEJO HOPPER M.D. DATE OF OPERATION: 11/05/2016 Catheterization Report PROCEDURES PERFORMED: 1. Selective coronary angiography. 2. PTCA and stent placed to the LAD. 3. PTCA of the diagonal. INDICATION: A 71-year-old gentleman, presents with acute anterior wall myocardial infarction. EQUIPMENT USED: Diagnostic 5-[place] JL4, Jerome right. INTERVENTION: A 6-[place] XB LAD guide, Whisper guidewire, 2.0 x 12-mm Trinity balloon, 2.5 x 20 mm Trinity balloon, 3.0 x 12 mm Trinity balloon, 2.5 x 12 mm Integrity stent. TECHNIQUE: A 6-[place] sheath was inserted in retrograde fashion in the right common femoral artery. Next, selective coronary angiography was performed in standard 5-[place] JL4 and Jerome right. CORONARY ANATOMY: 1. Left main: Left main trunk is moderate in caliber. It gives rise to the LAD and circumflex, has a distal 50% stenosis. 2. LAD: This vessel is 100% occluded in the proximal segment before the first diagonal branch. 3. Circumflex: This vessel is moderate in caliber. The proximal mid vessel has been stented. The stents are widely patent. 4. Right coronary: This is moderate in caliber and dominant. It has mild irregularities throughout its course, but nothing worse than 30%. DESCRIPTION OF INTERVENTION: A 100 units per kilogram of heparin was infused. A 6-[place] XB LAD guide was advanced and engaged in the left main coronary artery. Next, a Whisper guidewire was placed in the distal LAD. Another Whisper wire was placed in the first diagonal branch. The proximal LAD was predilated with a 2.5 x 20 mm Trinity balloon at 12 atmospheres. Injections revealed taoism of flow, but what appeared to be large clot burden involving the proximal LAD. There is still no flow seen in the diagonal branch. At this point, a 2.0 x 12 Trinity balloon was advanced and several long inflation performed at the origin of the diagonal branch. At this point, taoism of flow occur, but there appeared to be some residual thrombus within the first diagonal stent. Next, a 3.0 x 12 mm Trinity balloon was advanced to the proximal LAD. Long inflations performed at 14 atmospheres. There appeared to be some resolution of thrombus in this area. There still brisk flow down the LAD. However, distal to the last stent in the LAD, there are appeared to be a ruptured plaque representing a 70% stenosis. A 2.5 x 12 mm Integrity stent was placed across this area. Dissection deployed at 12 atmospheres. Injection reveals stent to be widely patent with 0% residual stenosis. Final injection revealed brisk flow into the diagonal branch, although it was still diseased. There is brisk flow into the distal LAD with no evidence of any residual dissection downstream. The patient was then placed on OPERATIVE REPORT [id number] SANDIE CHIRINOS. TRANSINT:[id number] Voice Confirmation ID: [id number] DOCUMENT ID: [id number] ALEJO HOPPER M.D. at 1326 CC: [id number] DICTATION DATE: 11/05/1658 PUMP SERVICE SUPERVISOR: 11/05/16 2316 [facility] [address] [place] [address]
--- NOTE | 2016-11-06 16:04 | NUR ---
SPOKE TO DR HOPPER. PT CAN TRANSFER TO FLOOR.
--- NOTE | 2016-11-06 18:35 | NUR ---
PT HAS BATHED AND SHAVED. FULL LINEN CHANGE PROVIDED. NOW RESTING, WATCHING TELEVISION. NO DISTRESS. DENIES NEEDS. CALL LIGHT IN REACH.
--- NOTE | 2016-11-06 19:30 | NUR ---
RECEIVED CARE OF PT, ASSESSMENT PER FLOWSHEET. PT ALERT AND ORIENTED X 4, ON RA, PPP, RT GROIN INCISION SITE CDI, SOFT TO PALP, NO S/S OF HEMATOMA, PT DENIES ANY TENDERNESS OR PAIN, HR SR ON CM AT A RATE OF 66, BREATH SOUNDS CTA, LT HAND PIV SL'D, PT AT BEDSIDE, DENIES ANY NEEDS AT THIS TIME.
--- NOTE | 2016-11-06 21:10 | NUR ---
PT RESTING IN BED WATCHING TV IN NO APPARENT DISTRESS, AT BEDSIDE, COKE PROVIDED PER REQUEST, CALL LIGHT IN REACH, BED LOW, VSS.
--- NOTE | 2016-11-06 23:40 | NUR ---
PT RESTING IN BED WITH EYES CLOSED, HR REMAINS SR IN 60'S, VSS.
[2016-11-07 03:00] VITALS: BP 90/56
--- NOTE | 2016-11-07 03:10 | NUR ---
PT RESTING IN BED WITH EYES CLOSED, VSS, HR SB ON CM, CONT TO MONITOR.
--- NOTE | 2016-11-07 05:20 | NUR ---
PT RESTING IN BED WITH EYES CLOSED, VSS, CONT TO MONITOR.
[2016-11-07 07:00] VITALS: BP 95/58
[2016-11-07 08:00] VITALS: BP 98/61
--- NOTE | 2016-11-07 08:28 | NUR ---
UP IN BED EATING BREAKFAST AND VISITING WITH AT THIS TIME. NO ACUTE DISTRESS NOTED. PT DENIES ANY NEEDS. RT GROIN DRESSING SITE NOTED WITH NO BLEEDING, REDNESS, OR EDEMA. PERIPHERAL PULSES PALPABLE. WILL CONTINUE PLAN OF CARE.
[2016-11-07 09:00] VITALS: BP 95/57
--- NOTE | 2016-11-07 09:30 | NUR ---
DR JACKSON HAS SEEN PT AND PLACED DISCHARGE ORDERS FOR PT TO GO HOME. HE HAS SPOKEH WITH PT AND PTS , THEY DECLINE ANY QUESTIONS REGARDING DISCHARGE. WILL CONTINUE PLAN OF CARE.
[2016-11-07 10:00] VITALS: BP 101/61
[2016-11-07] MEDS ORDERED: COREG 3.1253.125 MG PO (10:17)
[2016-11-07] MEDS ORDERED: BRILINTA90 MG PO (10:19)
--- NOTE | 2016-11-07 10:38 | NUR ---
DISCHARGE PAPERWORK REVIEWED WITH PT AND PTS AT THIS TIME. THEY DECLINE ANY QUESTIONS OR CONCERNS. RECIEVED HARD SCRIPT, DISCHARGE PAPERWORK, PTS STATED SHE WOULD CALL DR RABAGO OFFICE ON WEDNESDAY TO MAKE APPT IN ONE MONTH, PT DECLINED FLU AND PNEUMOCOCCAL VACCINES STATING HE NEVER REVIEVES THEM AND DOES NOT WISH TO. PT STATES HE DOES HAVE ACCESS TO HIS MEDICATIONS. DECLINES ANY NEEDS. PT HAS RECIEVED TEACHING PAPERWORK. WILL CONTINUE PLAN OF CARE.
--- NOTE | 2016-11-07 10:54 | NUR ---
IV TO LEFT WRIST DC AT THIS TIME, CATHETER TIP INTACT. NO ACUTE DISTRESS. WILL CONTINUE PLAN OF CARE.
[2016-11-07 11:00] VITALS: BP 103/63
--- NOTE | 2016-11-07 11:15 | NUR ---
PT DC HOME AT THIS TIME. LEFT WITH VIA PERSONAL VEHICLE WITH DISCHARGE PAPERWORK, TEACHING INFORMATION, HARD SCRIPTS FOR MEDICATIONS, INFORMATION REGARDING STENTS. DENIES ANY FURHTER QUESTIONS OR CONCERNS. NO FURTHER ACTIONS.
--- NOTE | 2016-11-07 17:52 | NUR ---
Late Entry 0945 CM Received telephone call that patient was ready for discharge. Met w/ the patient and his in the room. He is dressed and ready to go. His is providing transportation. He has 4 steps to enter his home. Has no DME or need. Does not have H/H services or require any assistance. Is independent. Has a and others to assist if assistance needed. Utilizes [facility] in [place] for medications. Will obtain his medication and will be complaint. Denies any needs.
--- NOTE | 2016-11-09 09:15 | EC ---
PATIENT:SANDIE CHIRINOS DATE OF SERVICE: 11/05/16 SEX: M MEDICAL RECORD: [id number] DATE OF : [birth year] LOCATION:[place] [address] AGE OF PATIENT: 71 ADMISSION DATE: 11/05/16 REFERRING PHYSICIAN: INTERPRETING PHYSICIAN: MARIZOL JACKSON MD ECHOCARDIOGRAM REPORT ECHO CHARGES 4 ECHO COMPLETE CLINICAL DIAGNOSIS: ACUTE ME ECHOCARDIOGRAPHIC MEASUREMENTS (adult normal given) AC root (d.<3.7cm) 3.2 LV Septum d (<1.2 cm> 1.4 Valve Excursion 2.0 LV Septum (systole) 1.9 Left Atria (s.<4.0cm> 3.5 LVPW d(<1.2cm) 1.4 RV (d.<2.3cm) 2.7 LVPW (sytole) 1.7 LV diastole(<5.6CM) 6.2 MV E-F(>70mm/sec) LV systole 4.3 LVOT Diameter 2.0 MV exc.(>10mm) Est.ejection fraction (50-75%) Pericardial Effusion N DOPPLER: LVIT A 48.0 E 62.0 LA RVSP 37.3 LVOT 85.0 AOP1/2T Asc. Ao 125 RVOT 60.0 RA PA 75.0 AV Gradient Peak 6.3 AV Mean 2.9 AV Area 1.9 MV Gradient Peak 2.6 MV Mean 0.77 MV Area COMMENTS: Fatback Trimmer: Waldemar TABOROE [employer] Attendant:2 Dr. Argueta TAPE# PACS DATE OF SERVICE: 11/08/2016 Adequate 2D echo, color flow, spectral Doppler and M-mode. Mild LVH. LV internal dimensions are normal. There is hypokinesis of the anterior septum from mid anterior wall down to the anterior apical region. Overall function reduced 30% to 35%. Aortic valve sclerosis without stenosis by Doppler interrogation. The left atrium is normal at 3.5 cm. The mitral valve shows no prolapse. Trace MR. Right-sided chamber is grossly normal. Trace TR. 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
== END 2016-11-07 11:29 | disposition home or self-care (01) | DRG 249 ==
LOC: D.ER 08:02 → D.CLR 09:52 → D.CVICU 09:52
PROVIDERS: Emergency Medicine; ADMIT Internal Medicine Cardiovascular Disease
PROC: 4A023N7 Measurement of Cardiac Sampling and Pressure, Left Heart, Percutaneous Approach (ICD-10-PCS; 2016-11-05)
PROC: B2111ZZ Fluoroscopy of Multiple Coronary Arteries using Low Osmolar Contrast (ICD-10-PCS; 2016-11-05)
PROC: 02703DZ Dilation of Coronary Artery, One Artery with Intraluminal Device, Percutaneous Approach (ICD-10-PCS; principal; 2016-11-05 11:00)
PROC: 02703ZZ Dilation of Coronary Artery, One Artery, Percutaneous Approach (ICD-10-PCS; 2016-11-05 11:00)
DX: I21.09 ST elevation (STEMI) myocardial infarction involving other coronary artery of anterior wall (principal); I25.10 Atherosclerotic heart disease of native coronary artery without angina pectoris; Z95.5 Presence of coronary angioplasty implant and graft

== ENCOUNTER 2017-04-02 10:26 | Inpatient (IN) | payer MEDICARE, BC ==
--- NOTE | ~2017-04-02 | HEMODYNAMI ---
PATIENT:SANDIE CHIRINOS MEDICAL RECORD: [id number] : 47 LOCATION:[place] [address] ADMISSION DATE: 04/02/17 Generatedon:04/03/201710:03 Patient name: SANDIE CHIRINOS Patient #: [id number] : 1945 Date of study: 04/03/2017 Page: Of Hemodynamic Procedure Report Patient Data Patient Demographics Procedure consent was obtained First Name: SANDIE Gender: Male Last Name: TARAN : 1945 Patient #: [id number] Age: 72 year(s) Race: SSN: [id number] Additional ID: [id number] Contact details Address: [address] [place] [address] rd State: [place] City: [place] Zip code: [address] Past Medical History Allergies: No known allergies Admission Admission Data Admission Date: 04/02/2017 Admission Time: 14:50 Room #: 2121 Height (in.): 177.8 BSA: 2.74 (m2) Height (cm.): 451.61 BMI: 1.72 (kg/m2) Weight (lbs.): 77.27 Weight (kg.): 35.05 Lab Results Lab Result Date: 04/03/2017 Lab Result Time: 0:00 Biochemistry Name Units Result Min Max BUN mg/dl 27 --(----)-* 7 18 Creatinine mg/dl 1.8 --(----)-* 0.6 1.3 CBC Name Units Result Min Max Hemoglobin g/dl 15.3 --(-*--)-- 13.5 17.5 Procedure Procedure Types Cath Procedure Diagnostic Procedure [facility] w/Coronaries Miscellaneous Procedures Moderate Sedation up to 15 minutes Procedure Description Procedure Date Procedure Date: 04/03/2017 Procedure Start Time: 9:44 Procedure End Time: 10:01 Procedure Staff Name Function Juan Manuel Bedoya MD Performing Physician Mindy Avila RN Nurse Tata Tong RT Monitor Jean Miles RT Scrub Procedure Data Cath Procedure Fluoroscopy Diagnostic fluoroscopy Total fluoroscopy Time: 2 time: 2 min min Diagnostic fluoroscopy Total fluoroscopy dose: 443 dose: 443 mGy mGy Contrast Material Contrast Material Type Amount (ml) Isovue 300 73 Entry Location Entry Primary Successful Side Size Upsize Upsize Entry Closure Succes sful Closure Location (Fr) 1 (Fr) 2 (Fr) Remarks Device Remarks Radial Right 5 Fr Exoseal artery Estimated blood loss: 10 ml Diagnostic catheters Device Type Used For End Catheter Placement Cordis 5Fr JL 4.0 Procedure Catheter (MP) Cordis 5Fr 3DRC Catheter Procedure (MP) Cordis 5Fr Pigtail Ventriculography Catheter (MP) Procedure Complications No complications Procedure Medications Medication Administration Route Dosage Oxygen NC 2 l/min Brilinta P.O. 90 mg Lidocaine 2% added to field 20 Heparin Flush Bag added to field 2 bags (1000units/500ml NS) 0.9% NaCl I.V. 100 ml/hr Versed I.V. 1 mg Fentanyl I.V. 50 mcg Heparin Bolus I.V. 5000 units Versed I.V. 1 mg Fentanyl I.V. 50 mcg Heparin Drip I.V. drip 1000 units/hr ([id number]/250 D5W) Hemodynamics Rest BSA: 2.74 (m2) HGB: 15.3 (g/dl) O2 Consumption: Estimated: 332.84 (ml/min) O2 Co nsumption indexed: Estimated:121.47 (ml/min/m) Heart Rate: 86 (bpm) Pressure Samples Time Site Value (mmHg) Purpose Heart Use Rate(bpm) 9:51 LV 93/8,20 Snapshot 76 9:52 AO 91/51(69) Pullback 75 9:52 LV 93/11,22 Pullback 75 Gradients Valve Time Site 1 Site 2 Mean SEP/DFP Peak To Heart Use (mmHg) (sec/min) Peak Rate (mmHg) (bpm) Aortic 9:52 LV AO 3 16 2 75 93/11,22 91/51(69) Calculations Valve P-P Mean Valve Index Valve Source Name Gradient Area Flow (cm2) Aortic 2 3 2 3 Snapshots Pre Cath Intra NCS Post Cath Vital Signs Time Heart Resp SPO2 etCO2 NIBP (mmHg) Rhythm Pain Sedation Rate (ipm) (%) (mmHg) Status Level (bpm) 9:22:15 85 17 96 0 134/77(109) NSR 0 (11) 10(A) , No pain 9:26:53 84 21 97 30.7 129/84(108) NSR 0 (11) 10(A) , No pain 9:31:30 77 16 97 31.5 119/77(98) NSR 0 (11) 10(A) , No pain 9:36:09 74 16 95 33 109/71(85) NSR 0 (11) 10(A) , No pain 9:40:43 79 16 94 11.2 107/70(86) NSR 0 (11) 10(A) , No pain 9:45:20 69 15 95 34.5 105/62(75) NSR 0 (11) 9(A) , No pain 9:49:56 69 15 94 35.3 104/59(76) NSR 0 (11) 9(A) , No pain 9:54:33 74 16 95 12.7 104/60(78) NSR 0 (11) 9(A) , No pain 9:59:07 74 15 95 30 106/64(80) NSR 0 (11) 10(A) , No pain Medications Time Medication Route Dose Verified Delivered Reason Note s Effectiveness by by 9:28:54 Oxygen NC 2 l/min Juan Manuel Fragaie used for St. Balwinder Avila RN procedure 9:29:04 Brilinta P.O. 90 mg Juan Manuel Buffie for St. Balwinder Avila RN antiplatelet MD therapy 9:29:14 Lidocaine 2% added 20ml Juan Manuel Juan Manuel for local to vial [facility] anesthetic field MD YOUNG 9:29:21 Heparin Flush added 2 bags Juan Manuel Juan Manuel used for Bag to [facility] procedure (1000units/500ml field MD YOUNG NS) 9:29:30 0.9% NaCl I.V. 100 Juan Manuel Guillen Per physician ml/hr St. Balwinder Avila RN, MD 9:42:23 Versed I.V. 1 mg Juan Manuel Fragaie for sedation St. Balwinder Avila RN, MD 9:42:30 Fentanyl I.V. 50 mcg Juan Manuel Guillen for sedation St. Balwinder Avila RN, MD 9:47:25 Heparin Bolus I.V. 5000 Juan Manuel Fragaie for veri fied units St. Balwinder Avila RN anticoagulation with dr MD murillo 9:50:17 Versed I.V. 1 mg Juan Manuel Guillen for sedation St. Balwinder Avila RN, MD 9:50:20 Fentanyl I.V. 50 mcg Juan Manuel Guillen for sedation St. Balwinder Avila RN, MD 9:56:23 Heparin Drip I.V. 1000 Juan Manuel Guillen for veri fied ([id number]/250 drip units/hr [place]ib[place] Avila RN anticoagulation with dr EckertW) MD murillo. infusa pump set at 10 ml/hr Procedure Log Time Note 9:00:43 Jean Miles RT(R) sent for patient. Start room use. 9:03:05 Patient Height : 177.8 inches 9:03:18 Patient Weight : 77.27 lbs 9:05:01 Lab Result : Hemoglobin 15.3 g/dl 9:05:01 Lab Result : Creatinine 1.8 mg/dl 9:05:01 Lab Result : BUN 27 mg/dl 9:16:44 Time tracking: Regular hours 9:16:49 Plan of Care:Hemodynamics will remain stable., Cardiac rhythm will remain stable., Comfort level will be maintained., Respiratory function will remain adequate., Patient/ family verbilizes understanding of procedure., Procedure tolerated without complication., Recovers from procedure without complications.. 9:17:03 Patient received from PCU to CCL 1 Alert and oriented. Tansferred to table in Supine position. 9:17:06 Correct patient and procedure confirmed by team. 9:17:06 Warm blankets applied, and gabino hugger turned on for patient comfort. 9:17:08 Signed procedure consent form obtained from patient. 9:17:08 ECG and BP/O2 sat monitors applied to patient. 9:21:25 Vital chart was started 9:21:26 Baseline sample Acquired. 9:21:31 Rhythm: sinus rhythm 9:21:32 Full Disclosure recording started 9:21:45 H&P Date Dictated: 04/02/2017 Within 30 days and on chart., H&P Addendum completed by physician on day of procedure. (MUST COMPLETE FOR ALL OUTPATIENTS). 9:21:46 Pre-procedure instructions explained to patient. 9:21:49 Family in patients room. 9:21:51 Patient NPO since Midnight. 9:21:59 Patient allergic to No known allergies 9:22:08 Is the patient allergic to Iodine/contrast media? No. 9:22:11 Was the patient premedicated? Yes 9:22:12 Is patient on blood thinner?Yes 9:22:15 ACC The patient was administered the following blood thiners within the last 24 hours: ACCBrilinta 9:22:19 Patient diabetic? No. 9:22:23 Snore? Yes 9:22:25 Sleep apnea? Unknown 9:22:30 Dentures? No ? 9:22:36 Patient pain scale 0/10 ?. 9:22:42 IV patent on arrival in left forearm with 0.9% NaCl at [facility]. 9:22:51 Lab results completed and on chart. 9:22:56 Right groin area was prepped with chlora-prep and draped in sterile fashion 9:22:57 Alarms reviewed by R. N. 9:22:58 Sharps counted by scrub and verified by R.N. 9:27:39 Physician paged 9:28:04 Use device set Femoral Dx 9:28:06 Acist Syringe opened to sterile field. 9:28:06 Bag Decanter opened to sterile field. 9:28:07 Medline Cath Pack opened to sterile field. 9:28:08 Terumo 5Fr Monroe Sheath opened to sterile field. 9:28:08 St Andres 260cm J .035 wire opened to sterile field. 9:28:10 Acist Hand Control opened to sterile field. 9:28:10 Acist Manifold opened to sterile field. 9:28:11 Diagnostic Infinity 5Fr Multipack catheter opened to sterile field. 9:28:12 Tegaderm 4 x 4 opened to sterile field. 9:28:54 Oxygen 2 l/min NC was administered by Mindy Avila RN; used for procedure; 9:29:04 Brilinta 90 mg P.O. was administered by Mindy Avila RN; for antiplatelet therapy; 9:29:14 Lidocaine 2% 20ml vial added to field was administered by Juan Manuel Bedoya MD; for local anesthetic; 9:29:21 Heparin Flush Bag (1000units/500ml NS) 2 bags added to field was administered by Juan Manuel Bedoya MD; used for procedure; 9:29:30 0.9% NaCl 100 ml/hr I.V. was administered by Mindy Avila RN; Per physician; 9:33:34 Zero performed for pressure channel P1 9:37:52 Physician arrived 9:37:54 --------ALL STOP TIME OUT------ 9:37:55 Final Timeout: patient, procedure, and site verified with staff and physician. All members of the team are in agreement. 9:37:57 Right groin site verified by team. 9:38:02 Sedation plan: IV Moderate Sedation Versed, Fentanyl 9:42:23 Versed 1 mg I.V. was administered by Mindy Avila RN; for sedation; 9:42:30 Fentanyl 50 mcg I.V. was administered by Mindy Avila RN; for sedation; 9:44:00 Procedure started. 9:44:10 Local anesthetic to right femoral artery with Lidocaine 2% by Juan Manuel Bedoya MD.INITIAL ACCESS ONLY 9:44:24 A 5 Fr sheath was inserted into the Right Radial artery 9:45:24 A Cordis 5Fr JL 4.0 Catheter (MP) was advanced over the wire and used for Procedure. 9:45:46 LCA angiography performed. 9:46:53 Catheter removed. 9:47:25 Heparin Bolus 5000 units I.V. was administered by Mindy Avila RN; for anticoagulation; verified with dr murillo 9:47:30 A Cordis 5Fr 3DRC Catheter (MP) was advanced over the wire and used for Procedure. 9:50:17 Versed 1 mg I.V. was administered by Mindy Avila RN; for sedation; 9:50:20 Fentanyl 50 mcg I.V. was administered by Mindy Avila RN; for sedation; 9:50:28 RCA angiography performed. 9:50:30 Catheter removed. 9:50:42 A Cordis 5Fr Pigtail Catheter (MP) was advanced over the wire and used for Ventriculography. 9:51:16 LV gram done using ESTEBAN 9:52:11 EF : 20 % 9:52:13 Catheter removed. 9:56:23 Heparin Drip (36440wodzg/250 D5W) 1000 units/hr I.V. drip was administered by Mindy Avila RN; for anticoagulation; verified with dr murillo. infusa pump set at 10 ml/hr 9:57:25 Surg Consult for Baljit 9:57:27 Cordis 5Fr Exoseal opened to sterile field. 9:57:39 Sheath removed intact; hemostasis achieved with Exoseal to the Right Radial artery. 9:58:55 Procedure ended.(Physican Out) 9:59:53 Fluoroscopy time 02.00 minutes. 9:59:57 Fluoroscopy dose: 443 mGy 9:59:57 Flurop Dose total: 443 10:00:20 Contrast amount:Isovue 300 73ml. 10:00:22 Sharps counted by scrub and verified by R.N. 10:00:23 Insertion/operative site no bleeding no hematoma. 10:00:27 Post right femoral artery:stable 10:00:31 Post Procedure Pulses reassessed and unchanged 10:00:46 Post procedure rhythm: unchanged. 10:00:49 Estimated blood loss: 10 ml 10:00:52 Post procedure instruction explained to patient.Patient verbalizes understanding. 10:01:09 Procedure and supply charges have been captured, reviewed, submitted and are correct. 10:01:33 Procedure Complication : No complications 10:01:35 Vital chart was stopped 10:01:36 See physician's report for complete and final results. 10:01:38 Report given to Med II. 10:01:42 Patient transfered to Med II with Bed. 10:01:45 Procedure ended. 10:01:45 Full Disclosure recording stopped 10:01:54 End room use (Document Last) Device Usage Item Name Manufacture Quantity Catalog Hospital Part Current Minimal Lo t# / Number Charge Number Stock Stock Serial# Code Acist Acist 1 [id number] [id number] 348778 160412 20 Syringe [employer] Bag Microtek 1 2002S 618897 43576 429871 5 [employer] Medline Cardinal 1 [id number] 976374 58783 832894 5 Inkshares Terumo 5Fr Terumo 1 [id number] 851291 511775 619183 [address] Andres 1 694310 735436 487732 442740 30 260cm J .035 wire Acist Hand Acist 1 54097 668943 715439 686599 5 [employer] Inc Acist Acist 1 37307 969455 479037 580797 5 Bus[employer]al [employer] Diagnostic Cardinal 1 [id number] 924995 31455 658874 30 ERUCES 5Fr Multipack catheter Tegaderm 4 3M 1 1626W 063649 179258 260914 5 x 4 Cordis 5Fr Cardinal 1 564710 5 JL 4.0 Health Catheter (MP) Cordis 5Fr Cardinal 1 867976 5 3DRC Health Catheter (MP) Cordis 5Fr Cardinal 1 168130 5 Pigtail Health Catheter (MP) Cordis 5Fr Cardinal 1 EX500 157435 064563 618355 10 [facility] Signature Audit [employer] Time Signature Unsigned Intra-Procedure 04/03/2017 Tata Tong 10:03:10 AM RT(R) Signatures Monitor : Tata Tong Signature : RT Date : Time : [place] [address] [place] [address]
[~2017-04-02 10:26] MED LIST changes: +BRILINTA90 MG PO; +COREG 3.1253.125 MG PO
[2017-04-02 11:15] LABS: BASOPHILS 0.2 % (0-2); EOSINOPHILS 1.4 % (0-7); HEMATOCRIT 45.8 % (42.0-54.0); HEMOGLOBIN 15.3 g/dL (13.5-17.5); IMMATURE GRANULOCYTES 0.2 % (0-5); LYMPHOCYTES 19.5 % (15-50); MCH 31.7 pg (26.0-34.0); MCHC 33.4 g/dL (31.0-37.0); MEAN PLATELET VOLUME 12.5 fL (7.4-10.4); MONOCYTES 8.7 % (2-11); PLATELET COUNT 167 10x3/uL (130-400); RBC 4.82 10x6/uL (4.20-6.10); RDW 13.1 % (11.5-14.5)
[2017-04-02 11:40] LABS: INR 1.02 (0.85-1.17); PROTIME 13.2 SECONDS (11.6-15.0)
[2017-04-02 11:41] LABS: ALBUMIN 3.8 g/dL (3.4-5.0); ALKALINE PHOSPHATASE 101 U/L (46-116); ALT (SGPT) 24 U/L (10-68); BILIRUBIN - TOTAL 0.52 mg/dL (0.2-1.3); CALC OSMOLALITY 284 mosm/kg (275-300); CALCIUM 9.2 mg/dL (8.5-10.1); CARBON DIOXIDE 28.2 mmol/L (21.0-32.0); CHLORIDE - SERUM 101 mmol/L (98-107); CREATININE - SERUM 1.8 mg/dL (0.6-1.3); GLUCOSE 141 mg/dL (74-106); POTASSIUM - SERUM 4.1 mmol/L (3.5-5.1); PROTEIN - SERUM 8.5 g/dL (6.4-8.2); SODIUM 139 mmol/L (136-145); UREA NITROGEN 27 mg/dL (7-18); eGFR NON AFRICAN AMERICAN 40 mL/min (90-120)
[2017-04-02 12:02] LABS: CHOL - HDL RATIO 4.4 ratio (2.3-4.9); CHOLESTEROL, TOTAL 205 mg/dL (0-200); CREATINE KINASE 674 UL (21-232); HDL CHOLESTEROL 47 mg/dL (32-96); LDL CHOLESTEROL 138 mg/dL (0-100); LDL-HDL RATIO 2.9 ratio (1.5-3.5); PRO BNP 4861 pg/mL (0-125); TRIGLYCERIDE 100 mg/dL (30-200)
[2017-04-02 12:03] LABS: TROPONIN-I 10.071 ng/mL (0.000-0.060)
[2017-04-02 15:21] LABS: CKMB 74.5 U/L (0.0-3.6); CREATINE KINASE 638 UL (21-232)
[2017-04-02 15:24] LABS: TROPONIN-I 11.013 ng/mL (0.000-0.060)
--- NOTE | 2017-04-02 15:36 | NUR ---
TRANSFER FROM ER BY W/C. RAYSHAWNINTED TO ROOM. CALL LIGHT IN REACH. WILL CONT. PLAN OF CARE.
[2017-04-02 15:50] VITALS: BP 122/76; BMI 24.5
[2017-04-02] MEDS ORDERED: FUROSEMIDE20 MG PO (15:59)
--- NOTE | 2017-04-02 16:15 | NUR ---
ELEVARED TROPONIN CALLED TO DR. WALTERS.
[2017-04-02 20:00] VITALS: BP 113/69
[2017-04-02 20:28] VITALS: BP 113/69
[2017-04-02 20:49] LABS: CKMB 49.6 U/L (0.0-3.6); CREATINE KINASE 558 UL (21-232)
[2017-04-02 20:54] LABS: TROPONIN-I 11.518 ng/mL (0.000-0.060)
--- NOTE | 2017-04-02 22:47 | NUR ---
PT RESTING WITH EYES CLOSED. RESP EVEN AND REGULAR. SR UP X2, CALL LIGHT WITHIN REACH.
[2017-04-03] VITALS (8 sets, daily range): BP systolic 101–134; BP diastolic 60–78
[2017-04-03 03:19] LABS: CKMB 34.6 U/L (0.0-3.6); CREATINE KINASE 495 UL (21-232)
[2017-04-03 03:21] LABS: TROPONIN-I 13.234 ng/mL (0.000-0.060)
--- NOTE | 2017-04-03 10:50 | NUR ---
ASSESSMENT COMPLETED. DENIES ANY NEEDS. CALL LIGHT IN REACH WITH SR UP. TELEMERTY SHOWS SR 76. R AND LEFT AR WITH SL, PATENT. NPO FOR CATH. WILL MONITOR.
--- NOTE | 2017-04-03 10:53 | NUR ---
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 RIGHT GROIN SOFT WITH DRSG DRY AND INTACT. PPP. DENIES AND NEEDS. V/S STABLE, HEPARIN AT 1000 UNITS AN HOUR, WILL MONITOR.
--- NOTE | 2017-04-03 12:58 | NUR ---
LYINGIN QUIETH WITH HOB UP 10 DEGREES. RIGHT GROIN SOFT WITH DRSG DRY AND INTACT. V/S STABLE. WILL MONITOR. TELEMERTY SHOWS SR
--- NOTE | 2017-04-03 16:33 | NUR ---
RESTING QUIETLY NAD NOTED AT BEDSIDE
--- NOTE | 2017-04-03 18:04 | NUR ---
LYING QUIETLY. DENIES ANY NEEDS. SR UP WITH CALL LIGHT IN REAC, RIGHT GROIN SOFT WITH DRSG DRY AND INTACT. HEPARIN DRIP AT 1000 UNITS AN HOUR
--- NOTE | 2017-04-03 19:42 | NUR ---
RESUMED CARE OF PT, LYING IN BED RESPIRATIONS EVEN AND UNLABORED ON 2LPM VIA NC. 78 SR ON TELEMETRY. RIGHT GROIN C/D/I, STRONG PEDAL PULSE. LEFT FOREARM INFUSING HEPARIN @ 10. AT BEDSIDE. NO NEEDS AT THIS TIME, WILL CONTINUE TO MONITOR. SEE NURSE ASSESSMENT.
--- NOTE | 2017-04-04 01:21 | NUR ---
LYING IN BED, NO NEEDS AT THIS TIME. WILL CONTINUE TO MONITOR. CALL LIGHT IN REACH.
[2017-04-04 01:27] VITALS: BP 102/68
[2017-04-04 05:40] VITALS: BP 105/66
--- NOTE | 2017-04-04 07:30 | NUR ---
PT RESTING QUIETLY NAD NOTED AT THIS TIME AT BEDSIDE
[2017-04-04 08:00] VITALS: BP 115/67
--- NOTE | 2017-04-04 08:54 | OP ---
PATIENT NAME: SANDIE CHIRINOS MEDICAL RECORD: [id number] :47 LOCATION:[address] ADMISSION DATE:04/03/17 SURGEON: MARIZOL JACKSON MD DATE OF OPERATION: 04/03/2017 PROCEDURE: Left heart catheterization, selective coronary angiography, right femoral artery approach. CATHETERS: A 5-Welsh sheath, 5/4 left and right Lala, 5/4 pig. The procedure was well tolerated. The patient returned to hodges, sheath removed. ExoSeal device placed. FINDINGS: Left ventriculography in 30-degree ESTEBAN view, shows global hypokinesis, reduced EF, estimated EF 20%, this is not normal. CORONARY ANATOMY. LEFT MAIN: Left main tapers to about a 70% stenosis. It is quite hazy. The stent that is still on the LAD has obviously restenosed with probably a dissection in the mid portion and a moderate to large diagonal ostial stenosis of 80%. Distally there is LAD stenosis right at the apex of 80%. CIRCUMFLEX: Basically totally occluded before the takeoff of the first OM. This involves the true circumflex as well. RIGHT CORONARY ARTERY: Has luminal irregularities. 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 At this point in time, we will continue anticoagulation, meds to increase LV systolic function. May be best served waiting for a month with discharge with a vest if he does go home. Further recommendations as above. TRANSINT:[id number] Voice Confirmation ID: [id number] DOCUMENT ID: [id number] MARIZOL JACKSON MD at 0854 CC: [id number] DICTATION DATE: 04/03/17 1009 ROOFING TECHNICIAN: 04/03/17 1044 ADM IN [facility] [address] [place] [address]
--- NOTE | 2017-04-04 08:54 | HP ---
PATIENT: SANDIE CHIRINOS MEDICAL RECORD: [id number] ACCOUNT: [id number] LOCATION:[address] : [birth year] ADMISSION DATE: 04/03/17 HISTORY AND PHYSICAL EXAMINATION HISTORY: A 72-year-old gentleman with known history of coronary artery disease. 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 He underwent stent to the LAD. Subsequently seen by Dr. Argueta with acute closure. He was placed on Brilinta that time, has done well up until yesterday, when he began feeling bad with chest pain off and on all day yesterday. Chest pain throughout the night. He finally presented today with continued pain. He had prompt relief with one nitroglycerin. Enzymes are elevated, consistent with non-ST elevation myocardial infarction. We are asked to see him concerning his care. He is admitted for further evaluation. PAST MEDICAL HISTORY: Includes; 1. History of coronary artery disease as described above. 2. Hypertension. ALLERGIES: None known. MEDICATIONS: Include aspirin 81 daily, ibuprofen 200 q. 4 p.r.n., and Lasix 20 daily. SOCIAL HISTORY: Lives near [place]. He is nonsmoker and nondrinker. He takes care of his ADLs. REVIEW OF SYSTEMS: The patient reports easy bruising but reports no swollen glands. The patient reports no fever, no night sweats, no significant weight gain, no significant weight loss. No significant exercise tolerance. The patient reports no dry eyes, no irritation, no vision change. The patient reports no difficulty hearing and no ear pain. The patient reports no frequent nose bleeds or nose and sinus problems. The patient reports on arm pain on exertion. No shortness of breath while lying down. No history of heart murmur. The patient reports no cough, no wheezing or coughing up blood. The patient reports no abdominal pain, no vomiting. Normal appetite. No diarrhea and not vomiting blood. No nausea and no constipation. The patient reports no incontinence. No difficulty urinating. No hematuria. No increased frequency. The patient reports no muscle aches. No weakness, no arthralgias, no back pain. No swelling of the extremities. The patient reports no abnormal mole, no jaundice, no rashes. Reports no loss of consciousness. No weakness and no numbness. No seizures, dizziness, or headaches. The patient reports no depression, no sleep disturbance, feeling safe in a relationship and no alcohol abuse. The patient reports on fatigue. Reports no runny nose or sinus pressure. No itching, no hives, and no frequent sneezing. PHYSICAL EXAMINATION: GENERAL: Pleasant gentleman, in no acute distress. VITAL SIGNS: Blood pressure 122/76. Pulse 76 and regular. HEENT: Normocephalic and atraumatic. NECK: No bruits noted. HEART: Regular. LUNGS: Lung roberson clear. ABDOMEN: Soft and nontender. EXTREMITIES: Pulses are well preserved. There is no edema. HISTORY AND PHYSICAL [id number] SANDIE CHIRINOS DIAGNOSTIC DATA: ECG shows T wave inversion anteriorly, consistent with LAD lesion. IMPRESSION: Non-ST elevation myocardial infarction. PLAN: Plan for angiography and intervention based on above. TRANSINT:[id number] Voice Confirmation ID: [id number] DOCUMENT ID: [id number] MARIZOL JACKSON MD at 0854 CC: [id number] DICTATION DATE: 04/02/171704 SALESFORCE ADMINISTRATOR: 04/02/17 180 ADM IN [place] [address] [place] [address]
[2017-04-04] MEDS ORDERED: BRILINTA90 MG PO (10:06)
[2017-04-04] MEDS ORDERED: COREG6.25 MG PO (10:07)
[2017-04-04] MEDS ORDERED: ALDACTONE25 MG PO (10:07)
[2017-04-04] MEDS ORDERED: COZAAR25 MG PO (10:07)
--- NOTE | 2017-04-04 10:16 | NUR ---
ASSESSMENT COMPLETED. DENIES ANY NEEDS. TELEMERTY SHOWS SR 59. IV TO LEFT AND RIGHT AC. HEPARING DRIP AT 10 UNITS AN HOUR. RIGHT GROIN WITH DRSG SOFT AND DRSG DRY AND INTACT. PT TO BE DISCHARGED
[2017-04-04 12:00] VITALS: BP 98/66
--- NOTE | 2017-04-04 14:37 | NUR ---
PT DISCHARGED. IVS DCD WITH TIPS INTACT. INSTRUCTIONS GIVEN TO PT AND . TO PRIVATE CAR PER WHEEL CHAIR
--- NOTE | 2017-04-05 11:08 | DS ---
PATIENT:SANDIE CHIRINOS :47 MEDICAL RECORD: [id number] DISCHARGE SUMMARY ADMISSION DATE: 04/03/17 DISCHARGE DATE: 04/04/17 PROBLEM LIST: 1. Acute myocardial infarction. 2. Coronary artery disease, status post intervention. 3. Ischemic cardiomyopathy. HOSPITAL COURSE: Admitted with acute closure of stent. After reviewing anatomy, it was felt that at this point in time, medical management only. Discussed with Dr. Smiley. He will be seen for possibility of a LifeVest Wednesday. We will probably reimage in 4-6 weeks and discharged home on combination of ARB, beta-blockade and Aldactone as well as Brilinta b.i.d. TRANSINT:[id number] Voice Confirmation ID: [id number] DOCUMENT ID: [id number] MARIZOL JACKSON MD at 1108 CC: [id number] DICTATION DATE: 04/04/17 0856 BUSINESS CENTER REPRESENTATIVE: 04/04/17 1800 DIS IN 04/04/17 [facility] [address] [place] [address]
== END 2017-04-04 14:38 | disposition home or self-care (01) | DRG 281 ==
LOC: D.ER 10:26 → OBSVTIME 14:50 → D.M2 14:50
PROVIDERS: Family Medicine; ADMIT Internal Medicine Interventional Cardiology
PROC: B2151ZZ Fluoroscopy of Left Heart using Low Osmolar Contrast (ICD-10-PCS; 2017-04-03)
PROC: 4A023N7 Measurement of Cardiac Sampling and Pressure, Left Heart, Percutaneous Approach (ICD-10-PCS; 2017-04-03)
PROC: B2111ZZ Fluoroscopy of Multiple Coronary Arteries using Low Osmolar Contrast (ICD-10-PCS; principal; 2017-04-03 09:00)
DX: I21.4 Non-ST elevation (NSTEMI) myocardial infarction (principal); T82.855A Stenosis of coronary artery stent, initial encounter; I25.10 Atherosclerotic heart disease of native coronary artery without angina pectoris; Y83.8 Other surgical procedures as the cause of abnormal reaction of the patient, or of later complication, without mention of misadventure at the time of the procedure; I25.5 Ischemic cardiomyopathy; I10 Essential (primary) hypertension

== ENCOUNTER 2017-04-09 08:34 | Outpatient (CLI) | payer MEDICARE, BC ==
--- NOTE | ~2017-04-09 | HEMODYNAMI ---
PATIENT:SANDIE CHIRINOS MEDICAL RECORD: [id number] : 47 LOCATION:D.CAT ADMISSION DATE: 04/09/17 Generatedon:04/09/201714:13 Patient name: SANDIE CHIRINOS Patient #: [id number] : 1945 Date of study: 04/09/2017 Page: Of Hemodynamic Procedure Report Patient Data Patient Demographics Procedure consent was obtained First Name: SANDIE Gender: Male Last Name: TARAN : 1945 Middle Initial: W Age: 72 year(s) Patient #: [id number] Race: SSN: [id number] Additional ID: [id number] Contact details Address: [address] [place] [address] rd State: [place] City: [place] Zip code: [address] Past Medical History Allergies: No known allergies Admission Admission Data Admission Date: 04/09/2017 Admission Time: 8:34 Lab Results Lab Result Date: 04/03/2017 Lab Result Time: 0:00 Biochemistry Name Units Result Min Max BUN mg/dl 27 --(----)-* 7 18 Creatinine mg/dl 1.8 --(----)-* 0.6 1.3 CBC Name Units Result Min Max Hemoglobin g/dl 15.3 --(-*--)-- 13.5 17.5 Procedure Procedure Types Cath Procedure PCI Procedure Coronary Stent Initial x2 PTCA Additional Miscellaneous Procedures Moderate Sedation up to 30 minutes Procedure Description Procedure Date Procedure Date: 04/09/2017 Procedure Start Time: 13:47 Procedure End Time: 14:11 Procedure Staff Name Function Solitario Ortez MD Performing Physician Mindy Avila RN Nurse Jimena England RT Monitor Jean Miles RT Scrub Procedure Data Cath Procedure Fluoroscopy Diagnostic fluoroscopy Total fluoroscopy Time: 7 time: 7 min min Diagnostic fluoroscopy Total fluoroscopy dose: dose: 1735 mGy 1735 mGy Contrast Material Contrast Material Type Amount (ml) Isovue 300 130 Entry Location Entry Primary Successful Side Size Upsize Upsize Entry Closure Succes sful Closure Location (Fr) 1 (Fr) 2 (Fr) Remarks Device Remarks Femoral Right 6 Fr Exoseal artery Short Estimated blood loss: 10 ml Procedure Complications No complications Procedure Medications Medication Administration Route Dosage Oxygen NC 2 l/min Lidocaine 2% added to field 20 Heparin Flush Bag added to field 2 bags (1000units/500ml NS) 0.9% NaCl I.V. 100 ml/hr Versed I.V. 1 mg Fentanyl I.V. 50 mcg Heparin Bolus I.V. 5000 units Versed I.V. 1 mg Fentanyl I.V. 50 mcg Hemodynamics Rest HGB: 15.3 (g/dl) Heart Rate: 32 (bpm) Snapshots Pre Cath Intra NCS Post Cath Vital Signs Time Heart Resp SPO2 etCO2 NIBP Rhythm Pain Sedation Rate (ipm) (%) (mmHg) (mmHg) Status Level (bpm) 13:28:19 62 17 97 0 104/69(79) NSR 0 (11) 10(A) , No pain 13:32:27 64 17 98 28.4 99/63(80) NSR 0 (11) 10(A) , No pain 13:36:33 59 16 95 14.2 91/59(72) NSR 0 (11) 10(A) , No pain 13:40:36 59 16 95 20.2 84/57(67) NSR 0 (11) 10(A) , No pain 13:44:40 63 16 95 25.4 84/50(67) NSR 0 (11) 9(A) , No pain 13:48:42 60 15 97 24.7 84/58(65) NSR 0 (11) 9(A) , No pain 13:52:46 62 15 97 0 81/51(60) NSR 0 (11) 9(A) , No pain 13:56:49 57 16 97 14.9 90/48(64) NSR 0 (11) 9(A) , No pain 14:00:57 59 15 97 0 81/45(60) NSR 0 (11) 9(A) , No pain 14:04:57 60 16 96 12.7 86/56(67) NSR 0 (11) 10(A) , No pain 14:09:01 59 16 97 0 86/54(67) NSR 0 (11) 10(A) , No pain Medications Time Medication Route Dose Verified Delivered Reason Notes Effectiveness by by 13:28:28 Oxygen NC 2 Solitario Buffie used for l/min Neelima Avila RN procedure 13:28:34 Lidocaine 2% added 20ml Solitario Solitario for local to vial Neelima Ortez MD anesthetic field 13:28:39 Heparin Flush added 2 Solitario Solitario used for Bag to bags Neelima Ortez MD procedure (1000units/500ml field NS) 13:28:47 0.9% NaCl I.V. 100 Solitario Buffie Per physician ml/hr Neelima Avila RN 13:42:42 Versed I.V. 1 mg Solitario Fragaie for sedation Neelima Avila RN 13:42:48 Fentanyl I.V. 50 Solitario Buffie for sedation mcg Neelima Avila RN 13:50:11 Heparin Bolus I.V. 5000 Solitario Buffie for verifi ed units Neelima Avila RN anticoagulation with dr ortez 13:54:34 Versed I.V. 1 mg Solitario Fragaie for sedation Neelima Avila RN 13:54:38 Fentanyl I.V. 50 Solitario Fragaie for sedation mcg Neelima Avila RN Procedure Log Time Note 13:03:59 Mindy Avila RN sent for patient. Start room use. 13:04:00 Time tracking: Regular hours 13:04:03 Plan of Care:Hemodynamics will remain stable., Cardiac rhythm will remain stable., Comfort level will be maintained., Respiratory function will remain adequate., Patient/ family verbilizes understanding of procedure., Procedure tolerated without complication., Recovers from procedure without complications.. 13:20:29 Patient received from Pre/Post Procedure Room to CCL 2 Alert and oriented. Tansferred to table in Supine position. 13:20:30 Warm blankets applied, and gabino hugger turned on for patient comfort. 13:20:30 Correct patient and procedure confirmed by team. 13:20:31 Signed procedure consent form obtained from patient. 13:20:32 ECG and BP/O2 sat monitors applied to patient. 13:20:33 Full Disclosure recording started 13:27:15 Vital chart was started 13:28:22 Baseline sample Acquired. 13:28:28 Oxygen 2 l/min NC was administered by Buffie Avila RN; used for procedure; 13:28:31 Rhythm: sinus rhythm 13:28:34 Lidocaine 2% 20ml vial added to field was administered by Solitario Ortez MD; for local anesthetic; 13::39 Heparin Flush Bag (1000units/500ml NS) 2 bags added to field was administered by Solitario Ortez MD; used for procedure; 13:28:39 H&P Date Dictated: 04/09/2017 New H&P dictated by physician.. 13:28:40 Pre-procedure instructions explained to patient. 13:28:41 Pre-op teaching completed and patient verbalized understanding. 13:28:42 Family in waiting room. 13:28:44 Patient NPO since Midnight. 13:28:47 0.9% NaCl 100 ml/hr I.V. was administered by Mindy Avila RN; Per physician; 13:29:16 Is the patient allergic to Iodine/contrast media? No. 13:29:18 Is patient on blood thinner?Yes 13:29:20 ACC The patient was administered the following blood thiners within the last 24 hours: ACCBrilinta 13:31:42 Patient diabetic? No. 13:31:50 Previous problem with sedation/anesthesia? No ? 13:31:50 Snore? Yes 13:31:51 Sleep apnea? No 13:31:53 Deviated septum? No 13:31:54 Opens mouth fully? Yes 13:31:54 Sticks out tongue? Yes 13:31:58 Airway obstruction? No ? 13:32:07 Dentures? Yes IN 13:32:14 Pre procedure: right dorsailis pedis pulse 2+ Normal; easily identifiable; not easily obliterated 13:32:17 Patient pain scale 0/10 ?. 13:32:30 IV patent on arrival in left hand with 0.9% NaCl at [facility]. 13:32:37 Lab results completed and on chart. 13:32:40 Right groin area was prepped with chlora-prep and draped in sterile fashion 13:32:41 Alarms reviewed by R. N. 13:32:41 Sharps counted by scrub and verified by R.N. 13:33:11 Use device set Femoral PCI 13:33:12 Acist Syringe opened to sterile field. 13:33:12 Acist Hand Control opened to sterile field. 13:33:13 Bag Decanter opened to sterile field. 13:33:13 Medline Cath Pack opened to sterile field. 13:33:14 Terumo 6Fr [place] Sheath opened to sterile field. 13:33:14 St Andres 260cm J .035 wire opened to sterile field. 13:33:15 Merit BasixCompak Inflation Kit opened to sterile field. 13:33:15 Acist Manifold opened to sterile field. 13:33:16 Tegaderm 4 x 4 opened to sterile field. 13:33:29 Cordis 6FR XBLAD 3.5 guide catheter opened to sterile field. 13:33:34 Lohn Sci Choice PT Extra Support J 300cm .014 gu opened to sterile field. 13:35:35 Quick combo pads placed on patients chest and back. 13:39:16 Zero performed for pressure channel P1 13:41:14 Final Timeout: patient, procedure, and site verified with staff and physician. All members of the team are in agreement. 13:41:16 Right groin site verified by team. 13:41:19 Physical assessment completed. ASA score P 2 - A patient with mild systemic disease as per Solitario Ortez MD. 13:41:22 Sedation plan: IV Moderate Sedation Versed, Fentanyl 13:42:42 Versed 1 mg I.V. was administered by Mindy Avila RN; for sedation; 13:42:48 Fentanyl 50 mcg I.V. was administered by Mindy Avila RN; for sedation; 13:47:17 Procedure started. 13:47:20 Local anesthetic to right femoral artery with Lidocaine 2% by Solitario Ortez MD.INITIAL ACCESS ONLY 13:47:52 A 6 Fr Short sheath was inserted into the Right Femoral artery 13:48:14 6 Fr XBLAD 3.5 guide catheter was inserted over the wire 13:49:49 Choice PT ES to LAD wire advanced. 13:50:11 Heparin Bolus 5000 units I.V. was administered by Mindy Avila RN; for anticoagulation; verified with dr ortez 13:50:28 2nd Choice PT ES to Circ wire advanced. 13:52:57 Inflation number: 1 A Euphora 2.5 x 20 Balloon was prepped and advanced across the Mid CX, then inflated to 13 DEBBIE for 0:06 (min:sec). 13:53:05 Inflation number: 2 The Euphora 2.5 x 20 Balloon was reinflated across the Mid CX, to 11 DEBBIE for 0:04 (min:sec). 13:53:15 Inflation number: 3 The Euphora 2.5 x 20 Balloon was reinflated across the Mid CX, to 13 DEBBIE for 0:05 (min:sec). 13:53:34 Balloon removed over the wire. 13:54:34 Versed 1 mg I.V. was administered by Mindy Avila RN; for sedation; 13:54:38 Fentanyl 50 mcg I.V. was administered by Mindy Avila RN; for sedation; 13:55:12 Inflation Number: 4 A Cuco OTW 2.5 x 26 stent was prepped and advanced across the Mid CX. The stent was deployed at 13 DEBBIE for 0:06 (min:sec). 13:55:29 Stent catheter was removed intact over wire. 13:57:42 Inflation Number: 1 A Cuco OTW 2.25 x 15 stent was prepped and advanced across the Dist CX. The stent was deployed at 9 DEBBIE for 0:06 (min:sec). 13:59:49 Inflation number: 5 The stent balloon was then re-inflated across the Mid CX to 15 DEBBIE for 0:10 (min:sec). 13:59:56 Stent catheter was removed intact over wire. 14:00:24 Wire removed from circ. 14:02:04 Inflation Number: 1 A Cuco OTW 3.5 x 22 stent was prepped and advanced across the LMCA. The stent was deployed at 13 DEBBIE for 0:05 (min:sec). 14:03:23 Inflation number: 1 The stent balloon was then re-inflated across the Mid LAD to 9 DEBBIE for 0:05 (min:sec). 14:03:57 Stent catheter was removed intact over wire. 14:03:58 Wire removed. 14:03:58 Guide catheter removed. 14:04:10 Sheath removed intact; hemostasis achieved with Exoseal to the Right Femoral artery. 14:04:20 Procedure ended.(Physican Out) 14:06:33 Fluoroscopy time 07.00 minutes. 14:06:37 Fluoroscopy dose: 1735 mGy 14:06:37 Flurop Dose total: 1735 14:06:42 Contrast amount:Isovue 300 130ml. 14:06:43 Sharps counted by scrub and verified by R.NHeriberto 14:06:45 Insertion/operative site no bleeding no hematoma. 14:06:48 Post-op/insertion site Right Femoral artery dressed using a 4 x 4 and Tegaderm. 14:06:51 Post right femoral artery:stable, clean and dry 14:06:52 Post Procedure Pulses reassessed and unchanged 14:06:55 Post-procedure physical assessment completed. ASA score P 2 - A patient with mild systemic disease as per Solitario Ortez MD. 14:06:57 Post procedure rhythm: unchanged. 14:07:00 Estimated blood loss: 10 ml 14:07:01 Post procedure instruction explained to patient.Patient verbalizes understanding. 14:07:02 Patient needs reinforcement of post procedure teaching. 14:07:29 Procedure type changed to Cath procedure, PCI procedure, Coronary Stent Initial x2, PTCA Additional, Miscellaneous Procedures, Moderate Sedation up to 30 minutes 14:07:34 Procedure Complication : No complications 14:07:35 See physician's report for complete and final results. 14:07:53 Cordis 6Fr Exoseal opened to sterile field. 14:08:23 Lohn Sci Choice Floppy Straight 300cm 0.014 guid opened to sterile field. 14:08:49 PERCUTANEOUS ENTRY 19GA needle opened to sterile field. 14:09:08 Procedure and supply charges have been captured, reviewed, submitted and are correct. 14:10:29 Quick Combo opened to sterile field. 14:11:18 Vital chart was stopped 14:11:19 Report given to PCU. 14:11:27 Patient transfered to PCU with Bed. 14:11:34 Procedure ended. 14:11:34 Full Disclosure recording stopped 14:11:39 End room use (Document Last) Intervention Summary Intervention Notes Time ActionType Lesion and Equipment Action# Pressure Duration Attributes Used 13:52:57 Inflate Mid CX Euphora 1 13 00:06 balloon 2.5 x 20 Balloon 13:53:05 Reinflate Mid CX Euphora 2 11 00:04 balloon 2.5 x 20 Balloon 13:53:15 Reinflate Mid CX Euphora 3 13 00:05 balloon 2.5 x 20 Balloon 13:55:12 Place stent Mid CX [place] OTW 4 13 00:06 2.5 x 26 stent 13:57:42 Place stent Dist CX Cuco OTW 1 9 00:06 2.25 x 15 stent 13:59:49 Reinflate Mid CX [place] OTW 5 15 00:10 stent 2.5 x 26 balloon stent 14:02:04 Place stent LMCA Cuco OTW 1 13 00:05 3.5 x 22 stent 14:03:23 Reinflate Mid LAD [place] OTW 1 9 00:05 stent 3.5 x 22 balloon stent Device Usage Item Name Manufacture Quantity Catalog Number Hospital Part Current Min imal Lot# / Charge Number Stock Stock Serial# Code Acist Acist 1 02747 541454 603359 196592 20 Syringe Medical Systems Inc Acist Hand Acist 1 82868 258220 702564 877335 5 Control Medical Systems Inc Bag Decanter Microtek 1 2002S 292511 13611 709879 5 MobSmith. Medline Cath Cardinal 1 [id number] 975702 54742 744382 5 Eve Biomedical Terumo 6Fr Terumo 1 [id number] 526617 043163 944325 [address] [address] Andres 1 153169 062063 111694 265569 30 260cm J .035 wire Merit Merit 1 VC7111 065027 039876 524154 15 BasixDadaJOE.com Medical Inflation Kit Acist Acist 1 94788 292411 170322 185253 5 Manifold Medical Systems Inc Tegaderm 4 x 3M 1 1626W 423895 932663 179475 5 4 Cordis 6FR Cardinal 1 [id number] 805478 837814 506964 10 XBLAD 3.5 Health guide catheter Lohn Sci Lohn 1 [id number] 193830 767779 136070 5 Choice PT Scientific Extra Support J 300cm .014 gu Euphora 2.5 Medtronic 1 [id number] 289618 628358 653158 5 [id number] x 20 Balloon Cuco OTW 2.5 Medtronic 1 [id number] 489020 82520 515824 5 [id number] x 26 stent Cuco OTW Medtronic 1 [id number] 865222 71014 827688 5 [id number] 2.25 x 15 stent [place] OTW 3.5 Medtronic 1 [id number] 558041 6898019 136209 5 [id number] x 22 stent Cordis 6Fr Cardinal 1 EX600 839402 382450 126459 10 Tapastreet [facility] 1 [id number] 890418 261800 852387 5 Choice Scientific Floppy Straight 300cm 0.014 guid PERCUTANEOUS [facility] 1 [id number] 925183 409228 5 ENTRY 19GA needle Quick [facility] 1 [id number] 479125 326530 497801 5 Signature Audit [place] Stage Time Signature Unsigned Intra-Procedure 04/09/2017 Jimena 2:13:01 PM Counts RT(R) Signatures Monitor : Jimena Signature : Counts RT Date : Time : [address] [address]
[~2017-04-09 08:34] MED LIST changes: +ALDACTONE25 MG PO; +COREG6.25 MG PO; +COZAAR25 MG PO; +FUROSEMIDE20 MG PO
[2017-04-09 08:55] VITALS: BP 102/62; BMI 24.4
[2017-04-09 09:18] LABS: BASOPHILS 0.4 % (0-2); EOSINOPHILS 9.8 % (0-7); HEMATOCRIT 42.1 % (42.0-54.0); HEMOGLOBIN 13.9 g/dL (13.5-17.5); IMMATURE GRANULOCYTES 0.4 % (0-5); MCH 31.5 pg (26.0-34.0); MCV 95.5 fL (80.0-100.0); MEAN PLATELET VOLUME 12.8 fL (7.4-10.4); MONOCYTES 6.4 % (2-11); PLATELET COUNT 190 10x3/uL (130-400); RBC 4.41 10x6/uL (4.20-6.10); RDW 12.9 % (11.5-14.5); WBC 7.7 10x3/uL (4.8-10.8)
[2017-04-09 09:35] LABS: ANION GAP 11.1 mmol/L (8-16); CALCIUM 9.3 mg/dL (8.5-10.1); CARBON DIOXIDE 26.4 mmol/L (21.0-32.0); CREATININE - SERUM 2.5 mg/dL (0.6-1.3); POTASSIUM - SERUM 4.5 mmol/L (3.5-5.1)
--- NOTE | 2017-04-09 14:40 | NUR ---
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 VS WNL. RIGHT GROIN STABLE WITHOUT BLEEDING OR HEMATOMA NOTED. WILL MONITOR.
[2017-04-09 14:42] VITALS: BP 99/66; BMI 24.4
--- NOTE | 2017-04-09 16:56 | HP ---
PATIENT: SANDIE CHIRINOS MEDICAL RECORD: [id number] ACCOUNT: [id number] LOCATION:[address] : 47 ADMISSION DATE: 04/09/17 HISTORY AND PHYSICAL EXAMINATION ADMITTING DIAGNOSES: 1. Angina. 2. Coronary artery disease. 3. Cardiomyopathy. 4. Congestive heart failure, chronic systolic dysfunction. 5. Hypertension. HISTORY OF PRESENT ILLNESS: This is a gentleman, who presents with myocardial infarction. Underwent cardiac catheterization by Dr. Bedoya. He had significant left main disease as well as LAD disease as well as totally occluded circumflex. RCA was patent. He felt that it was high risk for intervention. The patient was turned down for bypass surgery due to a low ejection fraction. He continues to have angina. PHYSICAL EXAMINATION: GENERAL APPEARANCE: Well-nourished, well-developed, appears stated age. Level of distress, comfortable. PSYCHIATRIC: Mental status, alert, normal affect. Orientation, oriented to time, place and person. EYES: Lids and conjunctiva, noninjected. No discharge, no pallor. ENT: Lips, teeth, gums, normal dentition. Oropharynx, no cyanosis, no pallor. NECK: Carotid arteries, bilateral normal upstroke, no bruits, no thrills. JUGULAR VEINS: No jugular venous pressure or distention. CERVICAL LYMPH NODES: Nontender, nonenlarged. THYROID: Not enlarged. Nontender. No nodules. LUNGS: Respiratory effort, unlabored. CHEST: Normal curvature. No thoracic deformity. No chest wall tenderness. Percussion, resonant. Auscultation, clear. No wheezes, no rales, no rhonchi. CARDIOVASCULAR: Precordial exam, nondisplaced. No heaves or pericardial thrills. Rate and rhythm, regular. Heart sounds, normal S1, normal S2. No S3, no gallop, no rub. Systolic murmur, not heard. Diastolic murmur, not heard. EXTREMITIES: No cyanosis, no edema. Peripheral pulses, full and equal in all extremities, except as noted. No bruits appreciated. ABDOMEN: Soft, nondistended. Normal aorta. No bruit. Nontender. No masses. Liver, nontender, no hepatomegaly. Spleen, nontender, no splenomegaly. MUSCULOSKELETAL: No joint tenderness. No joint swelling. No erythema. NEUROLOGICAL: Normal gait, normal strength, normal tone. SKIN: Warm and dry. REVIEW OF SYSTEMS: The patient reports easy bruising but reports no swollen glands. The patient reports no fever, no night sweats, no significant weight gain, no significant weight loss. No significant exercise tolerance. The patient reports no dry eyes, no irritation, no vision change. Patient reports no difficulty hearing and no ear pain. Patient reports no frequent nose bleeds or nose and sinus problems. Patient reports on arm pain on exertion. No shortness of breath while lying down. No history of heart murmur. Patient reports no cough, no wheezing or coughing up blood. Patient reports no abdominal pain, no vomiting. Normal appetite. No diarrhea and not vomiting blood. No nausea and no constipation. Patient reports no incontinence. No difficulty urinating. No hematuria. No increased frequency. Patient reports HISTORY AND PHYSICAL [id number] SANDIE CHIRINOS no muscle aches. No weakness, no arthralgias, no back pain. No swelling of the extremities. Patient reports no abnormal mole, no jaundice, no rashes. Reports no loss of consciousness. No weakness and no numbness. No seizures, dizziness, or headaches. The patient reports no depression, no sleep disturbance, feeling safe in a relationship and no alcohol abuse. Patient reports on fatigue. Reports no runny nose or sinus pressure. No itching, no hives, and no frequent sneezing. OVERALL IMPRESSION: Significant angina with critical disease of left main and LAD. The patient asked to have something done or will have closure of the left main. This will be a terminal event. We will proceed with PTCA and stent of the left main, possibly revascularization of the circumflex. TRANSINT:[id number] Voice Confirmation ID: [id number] DOCUMENT ID: [id number] DALE ZAMORA MD at 1656 CC: [id number] DICTATION DATE: 04/09/17905 WIND OPERATIONS MANAGER: 04/09/17932 [facility] [address] [place] [address]
--- NOTE | 2017-04-09 16:57 | OP ---
PATIENT NAME: SANDIE CHIRINOS MEDICAL RECORD: [id number] :47 LOCATION:D.M2 D.2114 ADMISSION DATE: SURGEON: DALE ZAMORA MD DATE OF OPERATION: 04/09/2017 PROCEDURES: 1. Selective coronary angiography. 2. PTCA and stent of left circumflex. 3. PTCA and stent of left main. 4. PTCA of LAD. INDICATIONS: Angina, coronary artery disease, cardiomyopathy, congestive heart failure. PROCEDURE IN DETAIL: After informed consent was obtained and after detailed explanation of risks, benefits as well as alternative therapies, the patient elected to proceed with angiogram and angioplasty. The right femoral area was prepped and draped in normal sterile fashion. The right femoral artery was cannulated via modified Seldinger technique with placement of 6-Paraguayan sheath. All catheters exchanged through this sheath. FINDINGS: The left circumflex was totally occluded. This was wired with a ChoICE PT extra support wire. Ballooning was undertaken with a 2.5 balloon and stenting was undertaken with a 2.5 x 26-mm [place] and a 2.25 x 12-mm Cuco. Result was 0% residual stenosis. PTCA and stent of left main: Left main was addressed with a 3.5 x 22-mm [place]. This caused some plaque shift distally in the LAD. The LAD was ballooned with a 3.5 stent balloon. Result was 0% residual throughout. OVERALL IMPRESSION: 1. Successful PTCA and stent of the left circumflex going from a 100% initial stenosis to 0% residual stenosis. 2. Successful PTCA and stent of the left main going from 80% initial stenosis to 0% residual stenosis. TRANSINT:[id number] Voice Confirmation ID: [id number] DOCUMENT ID: [id number] DALE ZAMORA MD at 1657 CC: [id number] DICTATION DATE: 04/09/17 1417 WILDLIFE FORENSIC GENETICIST: 04/09/[address] [facility] [address] [place] [id number]
--- NOTE | 2017-04-09 19:32 | NUR ---
PT RESTING IN BED. 2L O2 NC, PT DENIES ANY PAIN AT THIS TIME. PT AAO. AT BEDSIDE. RIGHT GROIN DRSG CDI. DENIES ANY NEEDS. NO S/S OF DISTRESS. WILL CPOC
[2017-04-09 21:06] VITALS: BP 95/51
--- NOTE | 2017-04-10 00:25 | NUR ---
PT ASLEEP, AROUSES TO VERBAL STIMULI, DENIES ANY NEEDS. NO S/S OF DISTRESS. BED LOW AND CALL LIGHT IN REACH. STILL AT BEDSIDE. WILL CPOC
[2017-04-10 00:34] VITALS: BP 115/59
[2017-04-10 04:00] VITALS: BP 96/63
--- NOTE | 2017-04-10 06:20 | NUR ---
PT RESTING IN BED. AT BEDSIDE. PT SLEPT THROUGHT THE NIGHT. PT DENIES ANY PAIN. DENIES ANY NEEDS. NO S/S OF DISTRESS. WILL COPC
[2017-04-10 07:16] VITALS: BP 110/62
--- NOTE | 2017-04-10 08:58 | NUR ---
IV AND TELEMETRY DCD. DC PLANS GIVEN. UNDERSTANDING VOICED. ESCORTED TO CAR BY W/C.
== END 2017-04-10 08:59 | disposition home or self-care (01) ==
LOC: D.CATH 08:34 → D.M2 14:36 → D.CATH 04-10 08:59
PROVIDERS: Internal Medicine Interventional Cardiology
DX: I25.119 Atherosclerotic heart disease of native coronary artery with unspecified angina pectoris (principal); I42.9 Cardiomyopathy, unspecified; I11.0 Hypertensive heart disease with heart failure; I50.22 Chronic systolic (congestive) heart failure; Z01.812 Encounter for preprocedural laboratory examination
CPT/HCPCS: 92920; C9600 ×2

== ENCOUNTER → 2019-09-06 10:09 | Outpatient (CLI) | payer MEDICARE, BC ==
--- NOTE | ~2019-09-06 | EC ---
PATIENT:SANDIE CHIRINOS DATE OF SERVICE: 09/06/19 SEX: M MEDICAL RECORD: [id number] DATE OF : 47 [facility] AGE OF PATIENT: 74 ADMISSION DATE: 09/06/19 REFERRING PHYSICIAN: INTERPRETING PHYSICIAN: DALE ORTEZ MD ECHOCARDIOGRAM REPORT ECHO CHARGES 4 ECHO COMPLETE Date: 09/06/19 CLINICAL DIAGNOSIS: ANGINA/WONG/FATIGUE/WEAKNESS H/O CAD ECHOCARDIOGRAPHIC MEASUREMENTS (adult normal given) AC root (d.<3.7cm) 3.2 cm LV Septum d (<1.2 cm> 0.8 cm Valve Excursion 1.7 cm LV Septum (systole) 1.2 cm Left Atria (s.<4.0cm> 3.1 cm LVPW d(<1.2cm) 0.8 cm RV (d.<2.3cm) 2.2 cm LVPW (sytole) 0.9 cm LV diastole(<5.6CM) 5.9 cm MV E-F(>70mm/sec) cm LV systole 4.4 cm LVOT Diameter 2.0 cm MV exc.(>10mm) cm Est.ejection fraction (50-75%) % DOPPLER: LVIT cm/sec A 81.0 cm/sec E 43.0 cm/sec LA cm/sec RVSP 41.0 mmHg LVOT 74.0 cm/sec AOP1/2T m/s Asc. Ao 93.0 cm/sec RVOT 37.0 cm/sec RA cm/sec PA 75.0 cm/sec AV Gradient Peak 3.4 mmHg AV Mean 1.9 mmHg AV Area 2.4 cm MV Gradient Peak 4.0 mmHg MV Mean 1.5 mmHg MV Area cm COMMENTS: OP - HC X Ray Service Technician: 1 NAUN LUCIEN Used Car Sales Manager: 1 Dr. Ortez TAPE# PACS Pericardial Effusion Y DATE OF SERVICE: ECHOCARDIOGRAM FINDINGS: 1. Left ventricular chamber size is moderately dilated. Left ventricular systolic function is moderate to severely reduced, overall ejection fraction 25% to 30%. 2. Left atrium, right atrium, and right ventricular chamber sizes are within normal limits. ECHOCARDIOGRAM REPORT [id number] SANDIE CHIRINOS 3. Valvular structures have normal structure and motion. 4. Doppler interrogation reveals only trace mitral regurgitation, mild tricuspid regurgitation, no other valvular insufficiency or stenosis. Pulmonary systolic pressure is estimated 41 mmHg. 5. Small pericardial effusion is present. This is not hemodynamically significant. No evidence of left ventricular thrombus. TRANSINT:[id number] Voice Confirmation ID: [id number] DOCUMENT ID: [id number] DALE ORTEZ MD CC: [id number] DICTATION DATE: 09/11/19 1102 HAND STRIPER: 09/11/19 1254 DEP CLI 09/06/19 [place] [id number] [place] [id number]
== END | disposition home or self-care (01) ==
LOC: D.HCCECHO 10:09
PROVIDERS: ATTEND Internal Medicine Cardiovascular Disease
DX: I25.10 Atherosclerotic heart disease of native coronary artery without angina pectoris (principal)

== ENCOUNTER → 2020-02-06 09:53 | Outpatient (CLI) | payer MEDICARE, BC ==
[2020-02-06 10:49] LABS: ANION GAP 7.3 mmol/L (8-16); CALCIUM 9.3 mg/dL (8.5-10.1); CARBON DIOXIDE 31.5 mmol/L (21.0-32.0); CREATININE - SERUM 1.9 mg/dL (0.6-1.3); POTASSIUM - SERUM 4.8 mmol/L (3.5-5.1); T4 THYROXINE 7.8 ug/dL (4.7-13.3); THYROID STIMULATING HORMONE 1.76 uIU/mL (0.36-3.74)
== END | disposition home or self-care (01) ==
LOC: D.LAB 09:53 → D.CT 10:30
PROVIDERS: ATTEND Nurse Practitioner Acute Care
DX: R63.4 Abnormal weight loss (principal); Z80.9 Family history of malignant neoplasm, unspecified; K64.8 Other hemorrhoids; K31.89 Other diseases of stomach and duodenum; I95.9 Hypotension, unspecified; R05 Cough; R49.1 Aphonia

== ENCOUNTER → 2020-03-05 19:25 | Outpatient (CLI) | payer MEDICARE, BC | END | disposition home or self-care (01) | LOC: D.LABREF 19:25 | PROVIDERS: ATTEND Internal Medicine Cardiovascular Disease | DX: R63.4 Abnormal weight loss (principal); Z80.9 Family history of malignant neoplasm, unspecified; K64.8 Other hemorrhoids; K31.89 Other diseases of stomach and duodenum; I95.9 Hypotension, unspecified; R05 Cough; R49.1 Aphonia ==